=== PATIENT | female | born 1950 | race Caucasian/White ===

== ENCOUNTER 2018-05-20 08:12 | Inpatient (IN) ==
[2018-05-20 09:29] LABS: Apearance,Urine CLEAR (Clear); Bacteria,Urine Occasional /HPF (Few); Bilirubin,Urine Negative (Negative); Blood, Urine Negative (Negative); Glucose,Urine (UA) Negative (Negative); Hyaline Casts,Urine 9 /LPF (0-3); Ketones,Urine Negative (Negative); Nitrite,Urine Negative (Negative); Protein,Urine Negative; RBC,Urine 3 /HPF (0-4); Urine Color Straw (Yellow); Urine Urobilinogen < 2.0 EU/DL (0.2-1.0); WBC,Urine <1 /HPF (0-6)
[2018-05-20] MEDS ORDERED: methylPREDNISolone SOD SUC 125 MG/2 ML VIAL IV STA (09:33)
[2018-05-20] MEDS ORDERED: ONDANSETRON 4 MG/2 ML VIAL IV STA (09:33)
[2018-05-20] MEDS ORDERED: FUROSEMIDE 100 MG/10 ML VIAL IV STA (09:33)
[2018-05-20 09:40] LABS: Basophils # 0.1 10*3/uL (0.0-0.2); Basophils % 0.8 % (0.0-0.8); Eosinophils # 0.4 10*3/uL (0.0-0.87); Eosinophils % 5.3 % (0.00-10.9); Hematocrit 26.9 VOL% (35.7-47.0); Immature Granulocytes % 0.4 %; Immature Granulocytes Absolute 0.03 #; Lymphocytes # 1.2 10*3/uL (1.4-4.0); Mean Corpuscular Hemoglobin 19 PG (27-34); Mean Corpuscular Volume 74.1 FL (87-102); Mean Platelet Volume 9.8 FL (9.6-12.0); Monocytes % 13.2 % (1.7-12.7); Neutrophils # 4.7 10*3/uL (1.4-7.4); Neutrophils % 64.3 % (38.7-73.9); Platelet Count 325 T/CUMM (130-400); Red Blood Count 3.63 MC/CUMM (3.8-5.5); Red Cell Distribution Width 20.6 % (9.3-17.3); White Blood Count 7.4 T/CUMM (4-12)
[2018-05-20 09:45] LABS: Barbiturates Screen,Urine Negative (Negative); Benzodiazepines Screen,Urine Positive (Negative); Cannabinoid Screen,Urine Negative (Negative); INR 0.9; Opiate Screen,Urine Positive (Negative); PT Patient Result 9.4 SECS; Phencyclidine Screen,Urine Negative (Negative)
[2018-05-20 09:48] LABS: Albumin 3.7 G/DL (3.4-5.0); Bilirubin,Total 0.5 MG/DL (0.2-1.0); Calcium 8.2 MG/DL (8.5-10.1); Osmolality,Calculated 274.8 MOS/KG (273-304); Potassium 3.9 MMOL/L (3.5-5.1); Total Protein 6.8 G/DL (6.4-8.3)
[2018-05-20] MEDS ORDERED: ALBUTEROL 2.5 MG/3 ML NEB RESP TX SCH (10:00)
[2018-05-20 10:02] LABS: ABG Base Excess 4.3 MMOL/L (-2.5-2.5); ABG HCO3 28.2 MMOL/L (20-26); ABG Oxygen Saturation 93.2 % (95-100); ABG PH 7.255 (7.35-7.45); ABG PO2 77.8 MM HG (80-95); ABG TCO2 31.4 MMOL/L (23-27)
[2018-05-20 10:04] LABS: ABG PCO2 73.8 MM HG (35-48)
[2018-05-20] MEDS ORDERED: NALOXONE 0.4 MG/ML VIAL ONE (11:47)
[2018-05-20] MEDS ORDERED: NALOXONE 0.4 MG/ML VIAL IV ONE (11:50)
[2018-05-20] MEDS ORDERED: ONDANSETRON 4 MG/2 ML VIAL IV PRN (12:10)
[2018-05-20] MEDS ORDERED: ALBUTEROL 2.5 MG/3 ML NEB RESP TX PRN (12:10)
[2018-05-20] MEDS ORDERED: NALOXONE 0.4 MG/ML VIAL IV PRN (12:18)
[2018-05-20] MEDS: ALBUTEROL/IPRATROPIUM 3 ML NEB RESP TX SCH ×2 (12:20→19:08)
[2018-05-20] MEDS ORDERED: PANTOPRAZOLE 40 MG VIAL IV SCH (12:30)
[2018-05-20] MEDS: ENOXAPARIN 40 MG/0.4 ML SYRINGE SUBCUT SCH (14:30)
[2018-05-20] MEDS: SODIUM CHLORIDE 0.9% 1,000 ML IV SCH (14:30)
[2018-05-20] MEDS: BUDESONIDE 0.5 MG/2 ML NEB RESP TX SCH (19:08)
[2018-05-21] MEDS: ALBUTEROL/IPRATROPIUM 3 ML NEB RESP TX SCH ×4 (00:18→19:56)
[2018-05-21] MEDS: SODIUM CHLORIDE 0.9% 1,000 ML IV SCH (00:35)
[2018-05-21] MEDS: ACETAMINOPHEN 325 MG TABLET PO PRN ×2 (04:54→21:20)
[2018-05-21] MEDS: LEVOTHYROXINE 50 MCG TABLET PO SCH (06:18)
[2018-05-21] MEDS: BUDESONIDE 0.5 MG/2 ML NEB RESP TX SCH ×2 (07:22→19:57)
[2018-05-21 07:25] LABS: Basophils % 0.1 % (0.0-0.8); Immature Granulocytes % 0.7 %; Immature Granulocytes Absolute 0.06 #; Lymphocytes # 0.7 10*3/uL (1.4-4.0); Lymphocytes % 7.5 % (21.3-54.2); Mean Corpuscular HGB Conc 26.9 GM/DL (32-36); Mean Corpuscular Hemoglobin 20 PG (27-34); Mean Corpuscular Volume 73.6 FL (87-102); Monocytes # 1.1 10*3/uL (0.11-0.8); Monocytes % 11.9 % (1.7-12.7); Neutrophils # 7.2 10*3/uL (1.4-7.4); Neutrophils % 79.8 % (38.7-73.9); Platelet Count 312 T/CUMM (130-400); Red Blood Count 3.18 MC/CUMM (3.8-5.5); Red Cell Distribution Width 20.1 % (9.3-17.3); White Blood Count 9.1 T/CUMM (4-12)
[2018-05-21 07:29] LABS: Hematocrit 23.4 VOL% (35.7-47.0); Hemoglobin 6.3 GM/DL (12.0-16.0)
[2018-05-21 07:31] LABS: Bilirubin,Total 0.4 MG/DL (0.2-1.0); Calcium 8.1 MG/DL (8.5-10.1); Osmolality,Calculated 283.1 MOS/KG (273-304); Thyroid Stimulating Hormone 0.62 uIU/ml (0.358-3.74); Total Protein 6.5 G/DL (6.4-8.3)
[2018-05-21 07:37] LABS: Hypochromasia 2+; Ovalocytes Slight; Platelet Estimate Adequate
[2018-05-21] MEDS: LOSARTAN/HCTZ 50-12.5 MG TABLET PO SCH (08:29)
[2018-05-21] MEDS: PARoxetine 20 MG TABLET PO SCH (08:30)
[2018-05-21 09:51] LABS: ABG Base Excess 9.2 MMOL/L (-2.5-2.5); ABG HCO3 32.9 MMOL/L (20-26); ABG Oxygen Saturation 91.7 % (95-100); ABG PCO2 60.2 MM HG (35-48); ABG PO2 63.7 MM HG (80-95)
[2018-05-21] MEDS: ENOXAPARIN 40 MG/0.4 ML SYRINGE SUBCUT SCH (12:05)
[2018-05-21] MEDS: PRAMIPEXOLE 0.25 MG TABLET PO SCH (21:20)
[2018-05-21] MEDS: chlordiazePOXIDE 10 MG CAPSULE PO SCH (21:21)
[2018-05-21] MEDS: PRAVASTATIN 40 MG TABLET PO SCH (21:22)
[2018-05-22] MEDS: ALBUTEROL/IPRATROPIUM 3 ML NEB RESP TX SCH ×4 (00:52→19:00)
[2018-05-22] MEDS: ACETAMINOPHEN 325 MG TABLET PO PRN ×2 (02:15→18:08)
[2018-05-22 05:09] LABS: Calcium 8.5 MG/DL (8.5-10.1); Osmolality,Calculated 288.8 MOS/KG (273-304); Potassium 3.5 MMOL/L (3.5-5.1)
[2018-05-22 05:35] LABS: Basophils # 0.1 10*3/uL (0.0-0.2); Basophils % 0.5 % (0.0-0.8); Eosinophils # 0.1 10*3/uL (0.0-0.87); Eosinophils % 0.8 % (0.00-10.9); Hematocrit 24.5 VOL% (35.7-47.0); Hemoglobin 6.5 GM/DL (12.0-16.0); Immature Granulocytes % 0.5 %; Immature Granulocytes Absolute 0.05 #; Lymphocytes # 1.1 10*3/uL (1.4-4.0); Lymphocytes % 11.8 % (21.3-54.2); Mean Corpuscular HGB Conc 26.5 GM/DL (32-36); Mean Corpuscular Hemoglobin 19 PG (27-34); Mean Corpuscular Volume 73.1 FL (87-102); Mean Platelet Volume 9.8 FL (9.6-12.0); Monocytes % 10.5 % (1.7-12.7); Neutrophils # 7.1 10*3/uL (1.4-7.4); Neutrophils % 75.9 % (38.7-73.9); Platelet Count 304 T/CUMM (130-400); Red Blood Count 3.35 MC/CUMM (3.8-5.5); Red Cell Distribution Width 20.6 % (9.3-17.3); White Blood Count 9.4 T/CUMM (4-12)
[2018-05-22] MEDS: BUDESONIDE 0.5 MG/2 ML NEB RESP TX SCH ×2 (06:59→19:04)
[2018-05-22] MEDS: LEVOTHYROXINE 50 MCG TABLET PO SCH (07:18)
[2018-05-22] MEDS: ENOXAPARIN 40 MG/0.4 ML SYRINGE SUBCUT SCH (08:26)
[2018-05-22] MEDS: chlordiazePOXIDE 10 MG CAPSULE PO SCH (08:26)
[2018-05-22] MEDS: LOSARTAN/HCTZ 50-12.5 MG TABLET PO SCH (08:26)
[2018-05-22] MEDS: PARoxetine 20 MG TABLET PO SCH (08:26)
[2018-05-22] MEDS ORDERED: SODIUM CHLORIDE 0.9% 1,000 ML IV PRN (11:41)
[2018-05-22] MEDS: PANTOPRAZOLE 40 MG TABLET PO SCH ×2 (13:15→20:19)
[2018-05-22] MEDS: DICLOFENAC 1% GEL 100 GM TUBE TOP SCH ×3 (13:15→20:20)
[2018-05-22 20:11] LABS: Hematocrit 31.9 VOL% (35.7-47.0); Hemoglobin 9.1 GM/DL (12.0-16.0)
[2018-05-22] MEDS: PRAVASTATIN 40 MG TABLET PO SCH (20:19)
[2018-05-22] MEDS: GABAPENTIN 300 MG CAPSULE PO SCH (20:19)
[2018-05-22] MEDS: PRAMIPEXOLE 0.25 MG TABLET PO SCH (20:19)
[2018-05-22] MEDS ORDERED: MIRTAZAPINE 15 MG TABLET PO SCH (21:00)
[2018-05-23] MEDS: ALBUTEROL/IPRATROPIUM 3 ML NEB RESP TX SCH ×4 (00:38→19:24)
[2018-05-23] MEDS ORDERED: NALOXONE 0.4 MG/ML VIAL ONE ×2 (00:55→01:00)
[2018-05-23] MEDS: NALOXONE 0.4 MG/ML VIAL IV PRN ×2 (00:56→01:02)
[2018-05-23 01:14] LABS: ABG Base Excess 6.5 MMOL/L (-2.5-2.5); ABG HCO3 30.3 MMOL/L (20-26); ABG Oxygen Saturation 95.2 % (95-100); ABG PH 7.306 (7.35-7.45); ABG PO2 84.4 MM HG (80-95); ABG TCO2 32.3 MMOL/L (23-27); Allen Test Positive
[2018-05-23 01:17] LABS: ABG PCO2 69.5 MM HG (35-48)
[2018-05-23 01:51] LABS: Calcium 8.6 MG/DL (8.5-10.1); Osmolality,Calculated 284.1 MOS/KG (273-304); Potassium 2.8 MMOL/L (3.5-5.1)
[2018-05-23 02:27] LABS: Basophils # 0.1 10*3/uL (0.0-0.2); Basophils % 0.2 % (0.0-0.8); Immature Granulocytes % 1.9 %; Immature Granulocytes Absolute 0.45 #; Lymphocytes # 0.4 10*3/uL (1.4-4.0); Lymphocytes % 1.6 % (21.3-54.2); Mean Corpuscular HGB Conc 28.4 GM/DL (32-36); Mean Corpuscular Hemoglobin 22 PG (27-34); Mean Corpuscular Volume 76.4 FL (87-102); Monocytes # 1.8 10*3/uL (0.11-0.8); Monocytes % 7.3 % (1.7-12.7); NRBC # 0.03 10*3/uL; Neutrophils # 21.6 10*3/uL (1.4-7.4); Platelet Count 276 T/CUMM (130-400); Red Blood Count 4.06 MC/CUMM (3.8-5.5); Red Cell Distribution Width 20.4 % (9.3-17.3); White Blood Count 24.3 T/CUMM (4-12)
[2018-05-23 02:28] LABS: Hematocrit 30.6 VOL% (35.7-47.0); Hemoglobin 8.8 GM/DL (12.0-16.0)
[2018-05-23 02:37] LABS: Band Neutrophils 5 % (0-10); Lymphocytes 2 % (20-55); Segmented Neutrophils 87 % (50-85); Total Cells Counted 100
[2018-05-23 02:38] LABS: Anisocytosis 1+; Hypochromasia 1+
[2018-05-23 02:39] LABS: Ovalocytes Few; Platelet Estimate Adequate
[2018-05-23 02:46] LABS: ABG Base Excess 7.6 MMOL/L (-2.5-2.5); ABG HCO3 31.2 MMOL/L (20-26); ABG Oxygen Saturation 85.6 % (95-100); ABG PCO2 57.3 MM HG (35-48); ABG PH 7.383 (7.35-7.45); ABG TCO2 31.6 MMOL/L (23-27)
[2018-05-23] MEDS: POTASSIUM CHLORIDE RIDER 10 MEQ in PREMIX 1 EACH IV PRN ×5 (03:20→07:34)
[2018-05-23 04:06] LABS: Apearance,Urine CLEAR (Clear); Bilirubin,Urine Negative (Negative); Blood, Urine Negative (Negative); Glucose,Urine (UA) Negative (Negative); Ketones,Urine 5 mg/dL (Negative); Mucus,Urine Occasional /LPF (Occasional); Nitrite,Urine Negative (Negative); Protein,Urine Negative; RBC,Urine 1 /HPF (0-4); Squamous Epithelial Cell,Urine Occasional /HPF (0-10); Urine Color Yellow (Yellow); Urine Specific Gravity 1.017 (1.001-1.035); Urine Urobilinogen < 2.0 EU/DL (0.2-1.0); WBC,Urine 1 /HPF (0-6)
[2018-05-23] MEDS ORDERED: AZTREONAM 2,000 MG in SODIUM CHLORIDE 0.9% 100 ML IV SCH (06:00)
[2018-05-23] MEDS: LEVOTHYROXINE 50 MCG TABLET PO SCH (06:34)
[2018-05-23] MEDS: BUDESONIDE 0.5 MG/2 ML NEB RESP TX SCH ×2 (07:33→19:25)
[2018-05-23] MEDS: VANCOMYCIN INJ 1,250 MG in SODIUM CHLORIDE 0.9% 250 ML IV SCH ×2 (07:37→21:23)
[2018-05-23] MEDS: POTASSIUM CHLORIDE 20 MEQ TABLET PO PRN ×2 (07:43→11:02)
[2018-05-23] MEDS: PARoxetine 20 MG TABLET PO SCH (08:47)
[2018-05-23] MEDS: LOSARTAN/HCTZ 50-12.5 MG TABLET PO SCH (08:47)
[2018-05-23] MEDS: GABAPENTIN 300 MG CAPSULE PO SCH (08:47)
[2018-05-23] MEDS: PANTOPRAZOLE 40 MG TABLET PO SCH ×2 (08:48→21:23)
[2018-05-23] MEDS: DICLOFENAC 1% GEL 100 GM TUBE TOP SCH ×4 (09:53→21:23)
[2018-05-23] MEDS: ACETAMINOPHEN 325 MG TABLET PO PRN ×2 (11:54→18:30)
[2018-05-23] MEDS: AZTREONAM 2,000 MG in SYRINGE 1 EACH IV SCH ×2 (18:30→23:18)
[2018-05-23] MEDS: PRAVASTATIN 40 MG TABLET PO SCH (21:22)
[2018-05-24] MEDS: ALBUTEROL/IPRATROPIUM 3 ML NEB RESP TX SCH ×4 (00:50→20:01)
[2018-05-24 05:26] LABS: Calcium 8.5 MG/DL (8.5-10.1); Osmolality,Calculated 280.3 MOS/KG (273-304); Potassium 3.6 MMOL/L (3.5-5.1)
[2018-05-24 05:36] LABS: Basophils % 0.3 % (0.0-0.8); Eosinophils # 0.1 10*3/uL (0.0-0.87); Eosinophils % 0.5 % (0.00-10.9); Hematocrit 31.3 VOL% (35.7-47.0); Hemoglobin 8.9 GM/DL (12.0-16.0); Immature Granulocytes % 0.7 %; Immature Granulocytes Absolute 0.07 #; Lymphocytes # 0.3 10*3/uL (1.4-4.0); Lymphocytes % 3.5 % (21.3-54.2); Mean Corpuscular HGB Conc 28.4 GM/DL (32-36); Mean Corpuscular Hemoglobin 22 PG (27-34); Mean Corpuscular Volume 76.3 FL (87-102); Monocytes # 0.6 10*3/uL (0.11-0.8); Monocytes % 6.6 % (1.7-12.7); NRBC # 0.02 10*3/uL; Neutrophils # 8.4 10*3/uL (1.4-7.4); Neutrophils % 88.4 % (38.7-73.9); Platelet Count 200 T/CUMM (130-400); Red Cell Distribution Width 21.9 % (9.3-17.3); White Blood Count 9.6 T/CUMM (4-12)
[2018-05-24] MEDS: AZTREONAM 2,000 MG in SYRINGE 1 EACH IV SCH ×3 (06:00→17:33)
[2018-05-24 06:20] LABS: Band Neutrophils 3 % (0-10); Eosinophils 1 % (0-10); Lymphocytes 7 % (20-55); Segmented Neutrophils 81 % (50-85); Total Cells Counted 100
[2018-05-24 06:21] LABS: Hypochromasia 1+; Microcytosis 1+; Platelet Estimate Normal; Reactive Lymphocytes Few
[2018-05-24 06:22] LABS: Elliptocytes Few
[2018-05-24] MEDS: LEVOTHYROXINE 50 MCG TABLET PO SCH (06:30)
[2018-05-24] MEDS: ACETAMINOPHEN 325 MG TABLET PO PRN (06:37)
[2018-05-24] MEDS: BUDESONIDE 0.5 MG/2 ML NEB RESP TX SCH ×2 (07:50→20:01)
[2018-05-24] MEDS: POTASSIUM CHLORIDE 20 MEQ TABLET PO PRN ×2 (08:42→11:19)
[2018-05-24] MEDS: LOSARTAN/HCTZ 50-12.5 MG TABLET PO SCH (08:42)
[2018-05-24] MEDS: PARoxetine 20 MG TABLET PO SCH (08:42)
[2018-05-24] MEDS: DICLOFENAC 1% GEL 100 GM TUBE TOP SCH ×4 (08:43→21:06)
[2018-05-24] MEDS: PANTOPRAZOLE 40 MG TABLET PO SCH ×2 (08:43→21:01)
[2018-05-24] MEDS: VANCOMYCIN INJ 1,250 MG in SODIUM CHLORIDE 0.9% 250 ML IV SCH ×2 (08:43→21:06)
[2018-05-24] MEDS: PRAVASTATIN 40 MG TABLET PO SCH (21:36)
[2018-05-25] MEDS: AZTREONAM 2,000 MG in SYRINGE 1 EACH IV SCH ×2 (00:13→05:26)
[2018-05-25] MEDS: ALBUTEROL/IPRATROPIUM 3 ML NEB RESP TX SCH ×4 (00:48→19:24)
[2018-05-25] MEDS: ACETAMINOPHEN 325 MG TABLET PO PRN ×2 (01:56→23:45)
[2018-05-25] MEDS: LEVOTHYROXINE 50 MCG TABLET PO SCH (05:59)
[2018-05-25 06:39] LABS: Basophils # 0.1 10*3/uL (0.0-0.2); Basophils % 0.7 % (0.0-0.8); Eosinophils # 0.2 10*3/uL (0.0-0.87); Eosinophils % 2.6 % (0.00-10.9); Hematocrit 33.3 VOL% (35.7-47.0); Immature Granulocytes % 1.1 %; Immature Granulocytes Absolute 0.08 #; Lymphocytes # 0.6 10*3/uL (1.4-4.0); Lymphocytes % 8.5 % (21.3-54.2); Mean Corpuscular HGB Conc 28.5 GM/DL (32-36); Mean Corpuscular Hemoglobin 22 PG (27-34); Mean Corpuscular Volume 76.2 FL (87-102); Mean Platelet Volume 10.1 FL (9.6-12.0); Monocytes # 1.2 10*3/uL (0.11-0.8); Monocytes % 15.8 % (1.7-12.7); Neutrophils # 5.3 10*3/uL (1.4-7.4); Neutrophils % 71.3 % (38.7-73.9); Platelet Count 180 T/CUMM (130-400); Red Blood Count 4.37 MC/CUMM (3.8-5.5); Red Cell Distribution Width 22.8 % (9.3-17.3); White Blood Count 7.4 T/CUMM (4-12)
[2018-05-25 06:40] LABS: Calcium 8.8 MG/DL (8.5-10.1); Hemoglobin 9.5 GM/DL (12.0-16.0); Osmolality,Calculated 277.4 MOS/KG (273-304); Potassium 3.5 MMOL/L (3.5-5.1)
[2018-05-25 06:57] LABS: Band Neutrophils 2 % (0-10); Eosinophils 4 % (0-10); Hypochromasia 2+; Lymphocytes 13 % (20-55); Platelet Estimate Adequate; Segmented Neutrophils 70 % (50-85); Total Cells Counted 100
[2018-05-25 06:58] LABS: Microcytosis 1+
[2018-05-25] MEDS: BUDESONIDE 0.5 MG/2 ML NEB RESP TX SCH ×2 (07:08→19:24)
[2018-05-25] MEDS ORDERED: LIDOCAINE 100 MG/5 ML SYRINGE ONE (10:00)
[2018-05-25] MEDS ORDERED: PROPOFOL 200 MG/20 ML VIAL IV ONE (10:00)
[2018-05-25] MEDS: LOSARTAN/HCTZ 50-12.5 MG TABLET PO SCH (10:49)
[2018-05-25] MEDS: PARoxetine 20 MG TABLET PO SCH (10:50)
[2018-05-25] MEDS: PANTOPRAZOLE 40 MG TABLET PO SCH ×2 (10:50→22:22)
[2018-05-25] MEDS: DICLOFENAC 1% GEL 100 GM TUBE TOP SCH ×4 (11:01→22:22)
[2018-05-25] MEDS: VANCOMYCIN INJ 1,250 MG in SODIUM CHLORIDE 0.9% 250 ML IV SCH (11:12)
[2018-05-25] MEDS: PRAVASTATIN 40 MG TABLET PO SCH (22:22)
[2018-05-26] MEDS: ALBUTEROL/IPRATROPIUM 3 ML NEB RESP TX SCH ×4 (00:16→20:01)
[2018-05-26] MEDS: LEVOTHYROXINE 50 MCG TABLET PO SCH (06:46)
[2018-05-26] MEDS: BUDESONIDE 0.5 MG/2 ML NEB RESP TX SCH ×2 (07:35→20:01)
[2018-05-26] MEDS: LOSARTAN/HCTZ 50-12.5 MG TABLET PO SCH (09:34)
[2018-05-26] MEDS: PARoxetine 20 MG TABLET PO SCH (09:34)
[2018-05-26] MEDS: PANTOPRAZOLE 40 MG TABLET PO SCH ×2 (09:34→21:46)
[2018-05-26] MEDS: DICLOFENAC 1% GEL 100 GM TUBE TOP SCH ×4 (09:35→21:46)
[2018-05-26] MEDS ORDERED: hydroCHLOROthiazide 12.5 MG CAPSULE PO ONE (15:29)
[2018-05-26] MEDS ORDERED: SIMVASTATIN 20 MG TABLET PO SCH (21:00)
[2018-05-27] MEDS: ALBUTEROL/IPRATROPIUM 3 ML NEB RESP TX SCH ×3 (00:25→12:58)
[2018-05-27] MEDS: ACETAMINOPHEN 325 MG TABLET PO PRN (01:51)
[2018-05-27] MEDS ORDERED: BUDESONIDE 0.5 MG/2 ML NEB RESP TX SCH (08:00)
[2018-05-27] MEDS: LEVOTHYROXINE 50 MCG TABLET PO SCH (08:07)
[2018-05-27] MEDS ORDERED: LOSARTAN 50 MG TABLET PO SCH (09:00)
[2018-05-27] MEDS ORDERED: hydroCHLOROthiazide 25 MG TABLET PO SCH (09:00)
[2018-05-27] MEDS: PARoxetine 20 MG TABLET PO SCH (11:16)
[2018-05-27] MEDS: PANTOPRAZOLE 40 MG TABLET PO SCH (11:17)
[2018-05-27] MEDS: DICLOFENAC 1% GEL 100 GM TUBE TOP SCH ×2 (11:17→13:14)
[2018-05-27 11:58] VITALS: BP 149/91
== END 2018-05-27 14:45 | disposition home or self-care (01) | DRG 917 ==
LOC: EDUNIT# → EDBD → N.EDINP 08:12 → N.ED 08:12 → N.2W 11:45 → SUATTDRO 11:48 → N.CC 11:53 → N.2E 05-21 13:11 → N.CC 05-23 02:04 → N.2E 05-24 11:39
PROVIDERS: ADMIT Internal Medicine; ATTEND Internal Medicine

== ENCOUNTER 2020-08-28 00:33 | Inpatient (IN) ==
[2020-08-28 02:49] LABS: ABG Base Excess 7.9 MMOL/L (-2.5-2.5); ABG HCO3 31.7 MMOL/L (20-26); ABG Oxygen Saturation 97.9 % (95-100); ABG TCO2 39.9 MMOL/L (23-27); Allen Test Positive; Pt O2 Delivery Device Other
[2020-08-28 02:54] LABS: ABG PH 7.139 (7.35-7.45)
[2020-08-28] MEDS ORDERED: DOCUSATE SODIUM 100 MG CAPSULE PO PRN (03:15)
[2020-08-28] MEDS ORDERED: ACETAMINOPHEN 325 MG TABLET PO PRN (03:15)
[2020-08-28] MEDS ORDERED: ONDANSETRON 4 MG/2 ML VIAL IV PRN (03:15)
[2020-08-28] MEDS ORDERED: ALBUTEROL 2.5 MG/3 ML NEB RESP TX PRN (03:15)
[2020-08-28 04:11] LABS: ABG Base Excess 9.3 MMOL/L (-2.5-2.5); ABG Oxygen Saturation 94.9 % (95-100); ABG TCO2 45.7 MMOL/L (23-27)
[2020-08-28 04:12] LABS: Allen Test Positive; Pt O2 Delivery Device BIPAP
[2020-08-28 04:16] LABS: ABG PCO2 120.4 MM HG (35-48)
[2020-08-28 04:17] LABS: ABG PH 7.161 (7.35-7.45)
[2020-08-28] MEDS: LEVOFLOXACIN INJ 750 MG in PREMIX 1 EACH IV SCH (06:00)
[2020-08-28] MEDS: ENOXAPARIN 40 MG/0.4 ML SYRINGE SUBCUT SCH (06:00)
[2020-08-28] MEDS: PANTOPRAZOLE 40 MG VIAL IV SCH (06:00)
[2020-08-28] MEDS: methylPREDNISolone SOD SUC 40 MG/1 ML VIAL IV SCH ×3 (06:01→21:15)
[2020-08-28] MEDS: LEVOTHYROXINE 50 MCG TABLET PO SCH (06:01)
[2020-08-28 06:20] LABS: ABG Base Excess 8.5 MMOL/L (-2.5-2.5); ABG HCO3 32.2 MMOL/L (20-26); ABG PO2 79.9 MM HG (80-95); ABG TCO2 40.5 MMOL/L (23-27); Allen Test Positive; Pt O2 Delivery Device BIPAP
[2020-08-28 06:26] LABS: ABG PH 7.143 (7.35-7.45)
[2020-08-28] MEDS: ALBUTEROL/IPRATROPIUM 3 ML NEB RESP TX SCH ×3 (06:49→19:53)
[2020-08-28] MEDS: ARFORMOTEROL 15 MCG/2 ML NEB RESP TX SCH ×2 (06:49→19:53)
[2020-08-28 06:54] LABS: Basophils % 0.2 % (0.0-0.8); Eosinophils % 0.1 % (0.00-10.9); Hematocrit 39.8 VOL% (35.7-47.0); Hemoglobin 11.9 GM/DL (12.0-16.0); Immature Granulocytes % 1.2 %; Immature Granulocytes Absolute 0.13 #; Lymphocytes # 0.2 10*3/uL (1.4-4.0); Lymphocytes % 2.3 % (21.3-54.2); Mean Corpuscular HGB Conc 29.9 GM/DL (32-36); Mean Corpuscular Volume 97.5 FL (87-102); Mean Platelet Volume 10.3 FL (9.6-12.0); Neutrophils % 95.2 % (38.7-73.9); Platelet Count 267 T/CUMM (130-400); Red Blood Count 4.08 MC/CUMM (3.8-5.5); Red Cell Distribution Width 14.3 % (9.3-17.3); White Blood Count 10.5 T/CUMM (4-12)
[2020-08-28 07:00] LABS: Lymphocytes 2 % (20-55); Platelet Estimate Adequate; Segmented Neutrophils 98 % (50-85); Total Cells Counted 100
[2020-08-28 07:01] LABS: Hypochromasia 1+; Microcytosis 1+
[2020-08-28 07:09] LABS: Alanine Aminotransferase 25 U/L (13-56); Albumin 3.3 G/DL (3.4-5.0); Alkaline Phosphatase 88 U/L (45-117); Aspartate Amino Transferase 21 U/L (0-37); Bilirubin,Total < 0.39 MG/DL (0.2-1.0); Blood Urea Nitrogen 19 MG/DL (7-18); Calcium 8.8 MG/DL (8.5-10.1); Carbon Dioxide 39 MMOL/L (21-32); Estimated Glom Filtration Rate 59 ML/MIN; Glucose 144 MG/DL (74-106); Osmolality,Calculated 277.8 MOS/KG (273-304); Potassium 4.1 MMOL/L (3.5-5.1); Sodium 137 MMOL/L (136-145); Thyroid Stimulating Hormone 0.732 uIU/ml (0.358-3.74); Total Protein 7.6 G/DL (6.4-8.3)
[2020-08-28 08:06] LABS: Pt O2 Delivery Device BIPAP
[2020-08-28 08:07] LABS: ABG Base Excess 8.7 MMOL/L (-2.5-2.5); ABG HCO3 32.4 MMOL/L (20-26); ABG Oxygen Saturation 97.3 % (95-100)
[2020-08-28 08:09] LABS: ABG PH 7.205 (7.35-7.45)
[2020-08-28] MEDS: ASCORBIC ACID 500 MG TABLET PO SCH (10:03)
[2020-08-28] MEDS: FERROUS SULFATE 325 MG TABLET PO SCH (10:03)
[2020-08-28] MEDS ORDERED: PRAMIPEXOLE 0.25 MG TABLET PO SCH ×2 (11:11→21:00)
[2020-08-28] MEDS ORDERED: PRAMIPEXOLE 0.25 MG TABLET PO ONE (11:23)
[2020-08-28] MEDS: Umeclidinium [Incruse Ellipta] 62.5 mcg/actuation INH SCH (18:11)
[2020-08-29] MEDS: ALBUTEROL/IPRATROPIUM 3 ML NEB RESP TX SCH ×4 (01:55→19:49)
[2020-08-29] MEDS: LEVOFLOXACIN INJ 750 MG in PREMIX 1 EACH IV SCH (03:35)
[2020-08-29] MEDS: PANTOPRAZOLE 40 MG VIAL IV SCH (03:36)
[2020-08-29 05:03] LABS: Hematocrit 35.6 VOL% (35.7-47.0); Hemoglobin 10.6 GM/DL (12.0-16.0); Immature Granulocytes % 0.7 %; Immature Granulocytes Absolute 0.05 #; Lymphocytes # 0.3 10*3/uL (1.4-4.0); Lymphocytes % 4.3 % (21.3-54.2); Mean Corpuscular HGB Conc 29.8 GM/DL (32-36); Mean Corpuscular Volume 95.7 FL (87-102); Mean Platelet Volume 10.5 FL (9.6-12.0); Monocytes % 5.4 % (1.7-12.7); Neutrophils % 89.6 % (38.7-73.9); Platelet Count 259 T/CUMM (130-400); Red Blood Count 3.72 MC/CUMM (3.8-5.5); Red Cell Distribution Width 13.7 % (9.3-17.3)
[2020-08-29 05:30] LABS: Hypochromasia 1+; Lymphocytes 3 % (20-55); Microcytosis 1+; Nucleated Red Blood Cells 1 (0-5); Platelet Estimate Normal; Polychromasia Slight; Segmented Neutrophils 91 % (50-85); Total Cells Counted 100
[2020-08-29] MEDS: ENOXAPARIN 40 MG/0.4 ML SYRINGE SUBCUT SCH (05:46)
[2020-08-29] MEDS: methylPREDNISolone SOD SUC 40 MG/1 ML VIAL IV SCH ×3 (05:46→20:56)
[2020-08-29] MEDS: LEVOTHYROXINE 50 MCG TABLET PO SCH (05:47)
[2020-08-29 06:01] LABS: ABG Base Excess 11.2 MMOL/L (-2.5-2.5); ABG HCO3 34.9 MMOL/L (20-26); ABG Oxygen Saturation 96.6 % (95-100); ABG PCO2 59.6 MM HG (35-48); ABG PH 7.414 (7.35-7.45); ABG PO2 86.4 MM HG (80-95); ABG TCO2 34.3 MMOL/L (23-27)
[2020-08-29 06:02] LABS: Allen Test Positive; Pt O2 Delivery Device BIPAP
[2020-08-29 06:34] LABS: Albumin 3.1 G/DL (3.4-5.0); Bilirubin,Total 0.7 MG/DL (0.2-1.0); Calcium 8.7 MG/DL (8.5-10.1); Osmolality,Calculated 279.8 MOS/KG (273-304); Potassium 3.8 MMOL/L (3.5-5.1); Total Protein 7.1 G/DL (6.4-8.3)
[2020-08-29] MEDS: ARFORMOTEROL 15 MCG/2 ML NEB RESP TX SCH ×2 (07:01→19:49)
[2020-08-29] MEDS: FERROUS SULFATE 325 MG TABLET PO SCH (08:24)
[2020-08-29] MEDS: ASCORBIC ACID 500 MG TABLET PO SCH (08:24)
[2020-08-29] MEDS: Umeclidinium [Incruse Ellipta] 62.5 mcg/actuation INH SCH (08:29)
[2020-08-29] MEDS ORDERED: ONDANSETRON ODT 4 MG TABLET PO PRN (12:07)
[2020-08-29] MEDS ORDERED: BUDESONIDE 0.5 MG/2 ML NEB RESP TX SCH (12:07)
[2020-08-29] MEDS ORDERED: ALBUTEROL 2.5 MG/3 ML NEB RESP TX PRN (12:07)
[2020-08-29] MEDS: PARoxetine 20 MG TABLET PO SCH (13:24)
[2020-08-29] MEDS ORDERED: ALPRAZolam 0.25 MG TABLET PO PRN (18:23)
[2020-08-29] MEDS: BUDESONIDE 0.5 MG/2 ML NEB RESP TX SCH (19:49)
[2020-08-29] MEDS: SIMVASTATIN 20 MG TABLET PO SCH (20:56)
[2020-08-29] MEDS: PRAMIPEXOLE 0.25 MG TABLET PO SCH (20:56)
[2020-08-30] MEDS: ALBUTEROL/IPRATROPIUM 3 ML NEB RESP TX SCH ×4 (00:50→19:06)
[2020-08-30] MEDS: LEVOFLOXACIN INJ 750 MG in PREMIX 1 EACH IV SCH (04:05)
[2020-08-30] MEDS: methylPREDNISolone SOD SUC 40 MG/1 ML VIAL IV SCH ×3 (04:05→20:43)
[2020-08-30 04:36] LABS: ABG Base Excess 13.5 MMOL/L (-2.5-2.5); ABG HCO3 40.5 MMOL/L (20-26); ABG Oxygen Saturation 93.1 % (95-100); ABG PH 7.412 (7.35-7.45); ABG PO2 70.8 MM HG (80-95); ABG TCO2 42.5 MMOL/L (23-27); Allen Test Positive; Pt O2 Delivery Device BIPAP
[2020-08-30 05:37] LABS: Hematocrit 32.6 VOL% (35.7-47.0); Hemoglobin 10.2 GM/DL (12.0-16.0); Immature Granulocytes % 0.6 %; Immature Granulocytes Absolute 0.04 #; Lymphocytes # 0.3 10*3/uL (1.4-4.0); Lymphocytes % 4.7 % (21.3-54.2); Mean Corpuscular HGB Conc 31.3 GM/DL (32-36); Mean Corpuscular Volume 93.4 FL (87-102); Mean Platelet Volume 10.6 FL (9.6-12.0); Monocytes % 4.5 % (1.7-12.7); Neutrophils % 90.2 % (38.7-73.9); Platelet Count 203 T/CUMM (130-400); Red Blood Count 3.49 MC/CUMM (3.8-5.5); Red Cell Distribution Width 14.2 % (9.3-17.3); White Blood Count 6.8 T/CUMM (4-12)
[2020-08-30 06:06] LABS: Band Neutrophils 1 % (0-10); Hypochromasia 1+; Lymphocytes 3 % (20-55); Microcytosis 1+; Platelet Estimate Adequate; Segmented Neutrophils 92 % (50-85); Total Cells Counted 100
[2020-08-30 06:13] LABS: Albumin 2.8 G/DL (3.4-5.0); Bilirubin,Total 0.5 MG/DL (0.2-1.0); Calcium 8.4 MG/DL (8.5-10.1); Osmolality,Calculated 284.5 MOS/KG (273-304); Total Protein 5.7 G/DL (6.4-8.3)
[2020-08-30] MEDS: LEVOTHYROXINE 50 MCG TABLET PO SCH (06:32)
[2020-08-30] MEDS: ENOXAPARIN 40 MG/0.4 ML SYRINGE SUBCUT SCH (06:32)
[2020-08-30] MEDS: BUDESONIDE 0.5 MG/2 ML NEB RESP TX SCH ×2 (07:36→19:07)
[2020-08-30] MEDS: ARFORMOTEROL 15 MCG/2 ML NEB RESP TX SCH ×2 (07:36→19:07)
[2020-08-30] MEDS: PARoxetine 20 MG TABLET PO SCH (08:26)
[2020-08-30] MEDS: ASCORBIC ACID 500 MG TABLET PO SCH (08:27)
[2020-08-30] MEDS: PANTOPRAZOLE 40 MG TABLET PO SCH (08:27)
[2020-08-30] MEDS: FERROUS SULFATE 325 MG TABLET PO SCH (08:27)
[2020-08-30] MEDS: Umeclidinium [Incruse Ellipta] 62.5 mcg/actuation INH SCH (10:47)
[2020-08-30] MEDS: SIMVASTATIN 20 MG TABLET PO SCH (20:44)
[2020-08-30] MEDS: PRAMIPEXOLE 0.25 MG TABLET PO SCH (20:44)
[2020-08-31] MEDS: ALBUTEROL/IPRATROPIUM 3 ML NEB RESP TX SCH ×3 (01:57→12:15)
[2020-08-31] MEDS: LEVOFLOXACIN INJ 750 MG in PREMIX 1 EACH IV SCH (03:47)
[2020-08-31] MEDS: methylPREDNISolone SOD SUC 40 MG/1 ML VIAL IV SCH ×2 (03:51→11:44)
[2020-08-31] MEDS: LEVOTHYROXINE 50 MCG TABLET PO SCH (06:01)
[2020-08-31] MEDS: ENOXAPARIN 40 MG/0.4 ML SYRINGE SUBCUT SCH (06:01)
[2020-08-31] MEDS: BUDESONIDE 0.5 MG/2 ML NEB RESP TX SCH (07:00)
[2020-08-31] MEDS: ARFORMOTEROL 15 MCG/2 ML NEB RESP TX SCH (07:00)
[2020-08-31] MEDS: ASCORBIC ACID 500 MG TABLET PO SCH (09:26)
[2020-08-31] MEDS: PANTOPRAZOLE 40 MG TABLET PO SCH (09:26)
[2020-08-31] MEDS: FERROUS SULFATE 325 MG TABLET PO SCH (09:26)
[2020-08-31] MEDS: PARoxetine 20 MG TABLET PO SCH (09:26)
[2020-08-31 11:42] VITALS: BP 143/69
== END 2020-08-31 14:10 | disposition home or self-care (01) | DRG 190 ==
LOC: SUATTDRO 02:18 → N.CC 02:18 → N.3E 08-29 22:39
PROVIDERS: ADMIT Internal Medicine; ATTEND Internal Medicine

== ENCOUNTER 2020-10-27 07:09 | Inpatient (IN) ==
[2020-10-27] MEDS ORDERED: ALBUTEROL 2.5 MG/3 ML NEB RESP TX STA (07:30)
[2020-10-27 08:03] LABS: Basophils % 0.1 % (0.0-0.8); Eosinophils # 0.1 10*3/uL (0.0-0.87); Eosinophils % 0.5 % (0.00-10.9); Hematocrit 38.4 VOL% (35.7-47.0); Immature Granulocytes % 0.5 %; Immature Granulocytes Absolute 0.08 #; Lymphocytes # 0.4 10*3/uL (1.4-4.0); Lymphocytes % 2.4 % (21.3-54.2); Mean Corpuscular HGB Conc 29.7 GM/DL (32-36); Monocytes % 8.9 % (1.7-12.7); Neutrophils % 87.6 % (38.7-73.9); Platelet Count 253 T/CUMM (130-400); Red Blood Count 3.96 MC/CUMM (3.8-5.5); Red Cell Distribution Width 14.8 % (9.3-17.3); White Blood Count 14.7 T/CUMM (4-12)
[2020-10-27 08:27] LABS: Alanine Aminotransferase 21 U/L (13-56); Alkaline Phosphatase 84 U/L (45-117); Aspartate Amino Transferase 18 U/L (0-37); Bilirubin,Total < 0.39 MG/DL (0.2-1.0); Blood Urea Nitrogen 12 MG/DL (7-18); Calcium 8.4 MG/DL (8.5-10.1); Carbon Dioxide 34 MMOL/L (21-32); Estimated Glom Filtration Rate 85 ML/MIN; Glucose 145 MG/DL (74-106); Sodium 136 MMOL/L (136-145); Total Protein 6.9 G/DL (6.4-8.2)
[2020-10-27 08:28] LABS: Hemoglobin 11.4 GM/DL (12.0-16.0)
[2020-10-27 08:40] LABS: Anisocytosis 1+; Band Neutrophils 22 % (0-10); Basophilic Stippling Slight; Lymphocytes 2 % (20-55); Platelet Estimate Normal; Segmented Neutrophils 69 % (50-85); Total Cells Counted 100
[2020-10-27 08:41] LABS: Macrocytosis Slight
[2020-10-27] MEDS ORDERED: GLUCAGON 1 MG VIAL IM PRN (10:14)
[2020-10-27] MEDS ORDERED: hydrALAZINE 20 MG/1 ML VIAL IV PRN (10:14)
[2020-10-27] MEDS ORDERED: DEXTROSE 50% 25 GM/50 ML VIAL IV PRN (10:14)
[2020-10-27] MEDS ORDERED: ACETAMINOPHEN 325 MG TABLET PO PRN (10:14)
[2020-10-27] MEDS ORDERED: FUROSEMIDE 40 MG/4 ML VIAL IV ONE (10:23)
[2020-10-27] MEDS ORDERED: AZITHROMYCIN INJ 500 MG in SODIUM CHLORIDE 0.9% 250 ML IV SCH (10:30)
[2020-10-27] MEDS: methylPREDNISolone SOD SUC 40 MG/1 ML VIAL IV SCH ×2 (11:28→22:47)
[2020-10-27] MEDS: LEVOFLOXACIN INJ 750 MG/150 ML PREMIX IV SCH (11:31)
[2020-10-27] MEDS: ENOXAPARIN 40 MG/0.4 ML SYRINGE SUBCUT SCH (11:32)
[2020-10-27 12:30] LABS: Bacteria,Urine Occasional /HPF (Few); Blood, Urine Negative (Negative); Glucose,Urine (UA) Negative (Negative); Hyaline Casts,Urine 44 /LPF (0-3); Ketones,Urine Negative (Negative); Mucus,Urine Moderate /LPF (Occasional); Nitrite,Urine Negative (Negative); Protein,Urine 100 MG/DL; RBC,Urine 3 /HPF (0-4); Squamous Epithelial Cell,Urine Occasional /HPF (0-10); Urine Appearance CLOUDY (Clear); Urine Color Amber (Yellow); Urine Specific Gravity 1.026 (1.001-1.035)
[2020-10-27 12:31] LABS: Bilirubin,Urine Small mg/dL (Negative)
[2020-10-27] MEDS ORDERED: CYANOCOBALAMIN 1000 MCG/1 ML VIAL IM SCH (13:30)
[2020-10-27] MEDS: ALBUTEROL 2.5 MG/3 ML NEB RESP TX PRN (15:09)
[2020-10-27] MEDS ORDERED: ARFORMOTEROL 15 MCG/2 ML NEB RESP TX SCH (19:00)
[2020-10-27] MEDS: ALBUTEROL/IPRATROPIUM 3 ML NEB RESP TX PRN (20:10)
[2020-10-27] MEDS: PRAMIPEXOLE 0.25 MG TABLET PO SCH (21:16)
[2020-10-27] MEDS: guaiFENesin/DM ER 600-30 MG TABLET PO SCH (21:17)
[2020-10-27] MEDS: SIMVASTATIN 20 MG TABLET PO SCH (21:17)
[2020-10-28] MEDS: ALBUTEROL/IPRATROPIUM 3 ML NEB RESP TX PRN (05:00)
[2020-10-28 05:16] LABS: Basophils % 0.2 % (0.0-0.8); Hematocrit 35.2 VOL% (35.7-47.0); Hemoglobin 10.7 GM/DL (12.0-16.0); Immature Granulocytes % 1.4 %; Immature Granulocytes Absolute 0.15 #; Lymphocytes # 0.3 10*3/uL (1.4-4.0); Lymphocytes % 2.6 % (21.3-54.2); Mean Corpuscular HGB Conc 30.4 GM/DL (32-36); Mean Corpuscular Volume 94.1 FL (87-102); Mean Platelet Volume 9.9 FL (9.6-12.0); Monocytes % 2.5 % (1.7-12.7); Neutrophils % 93.3 % (38.7-73.9); Platelet Count 263 T/CUMM (130-400); Red Blood Count 3.74 MC/CUMM (3.8-5.5); Red Cell Distribution Width 14.6 % (9.3-17.3); White Blood Count 10.6 T/CUMM (4-12)
[2020-10-28 05:38] LABS: Lymphocytes 3 % (20-55); Segmented Neutrophils 95 % (50-85); Total Cells Counted 100
[2020-10-28 05:39] LABS: Hypochromasia 1+; Microcytosis 1+; Platelet Estimate Adequate
[2020-10-28 05:45] LABS: Calcium 8.8 MG/DL (8.5-10.1); Potassium 3.9 MMOL/L (3.5-5.1); Risk Ratio 1.87; Thyroid Stimulating Hormone 0.387 uIU/ml (0.358-3.74); VLDL CHOLESTEROL 16.2 MG/DL
[2020-10-28] MEDS: LEVOTHYROXINE 50 MCG TABLET PO SCH (06:36)
[2020-10-28] MEDS: ALBUTEROL 2.5 MG/3 ML NEB RESP TX PRN (07:26)
[2020-10-28 07:28] LABS: Osmolality,Calculated 266.5 MOS/KG (273-304)
[2020-10-28] MEDS: LOSARTAN 50 MG TABLET PO SCH (08:44)
[2020-10-28] MEDS: FERROUS SULFATE 325 MG TABLET PO SCH (08:45)
[2020-10-28] MEDS: guaiFENesin/DM ER 600-30 MG TABLET PO SCH ×2 (08:45→22:09)
[2020-10-28] MEDS: PANTOPRAZOLE 40 MG TABLET PO SCH (08:45)
[2020-10-28] MEDS: hydroCHLOROthiazide 25 MG TABLET PO SCH (08:45)
[2020-10-28] MEDS: ASCORBIC ACID 500 MG TABLET PO SCH (08:45)
[2020-10-28] MEDS: PARoxetine 20 MG TABLET PO SCH (08:47)
[2020-10-28] MEDS: LEVOFLOXACIN INJ 750 MG/150 ML PREMIX IV SCH (10:00)
[2020-10-28] MEDS: ENOXAPARIN 40 MG/0.4 ML SYRINGE SUBCUT SCH (10:00)
[2020-10-28] MEDS: methylPREDNISolone SOD SUC 40 MG/1 ML VIAL IV SCH ×2 (10:00→22:09)
[2020-10-28] MEDS: ALBUTEROL/IPRATROPIUM 3 ML NEB RESP TX SCH ×2 (14:27→20:46)
[2020-10-28] MEDS: METHOCARBAMOL 500 MG TABLET PO PRN (16:12)
[2020-10-28] MEDS: SIMVASTATIN 20 MG TABLET PO SCH (22:09)
[2020-10-28] MEDS: PRAMIPEXOLE 0.25 MG TABLET PO SCH (22:09)
[2020-10-29] MEDS: ALBUTEROL/IPRATROPIUM 3 ML NEB RESP TX SCH ×4 (00:34→20:34)
[2020-10-29 05:27] LABS: Calcium 8.9 MG/DL (8.5-10.1); Osmolality,Calculated 260.1 MOS/KG (273-304); Potassium 3.9 MMOL/L (3.5-5.1)
[2020-10-29 06:05] LABS: Basophils % 0.2 % (0.0-0.8); Hematocrit 36.6 VOL% (35.7-47.0); Hemoglobin 11.3 GM/DL (12.0-16.0); Immature Granulocytes % 1.6 %; Immature Granulocytes Absolute 0.17 #; Lymphocytes # 0.3 10*3/uL (1.4-4.0); Lymphocytes % 3.2 % (21.3-54.2); Mean Corpuscular HGB Conc 30.9 GM/DL (32-36); Mean Corpuscular Volume 92.9 FL (87-102); Mean Platelet Volume 10.3 FL (9.6-12.0); Monocytes % 3.7 % (1.7-12.7); Neutrophils % 91.3 % (38.7-73.9); Platelet Count 308 T/CUMM (130-400); Red Blood Count 3.94 MC/CUMM (3.8-5.5); Red Cell Distribution Width 14.6 % (9.3-17.3); White Blood Count 10.4 T/CUMM (4-12)
[2020-10-29] MEDS: LEVOTHYROXINE 50 MCG TABLET PO SCH (06:17)
[2020-10-29 07:30] LABS: Band Neutrophils 1 % (0-10); Hypochromasia 1+; Lymphocytes 4 % (20-55); Microcytosis 1+; Nucleated Red Blood Cells 1 (0-5); Platelet Estimate Adequate; Segmented Neutrophils 90 % (50-85); Total Cells Counted 100
[2020-10-29] MEDS: PARoxetine 20 MG TABLET PO SCH (08:49)
[2020-10-29] MEDS: LOSARTAN 50 MG TABLET PO SCH (08:49)
[2020-10-29] MEDS: PANTOPRAZOLE 40 MG TABLET PO SCH (08:49)
[2020-10-29] MEDS: guaiFENesin/DM ER 600-30 MG TABLET PO SCH ×2 (08:49→21:59)
[2020-10-29] MEDS: FERROUS SULFATE 325 MG TABLET PO SCH (08:49)
[2020-10-29] MEDS: ASCORBIC ACID 500 MG TABLET PO SCH (08:49)
[2020-10-29] MEDS: LEVOFLOXACIN INJ 750 MG/150 ML PREMIX IV SCH (09:36)
[2020-10-29] MEDS: ENOXAPARIN 40 MG/0.4 ML SYRINGE SUBCUT SCH (09:36)
[2020-10-29] MEDS: methylPREDNISolone SOD SUC 40 MG/1 ML VIAL IV SCH ×2 (09:36→21:59)
[2020-10-29] MEDS: METHOCARBAMOL 500 MG TABLET PO PRN (13:17)
[2020-10-29] MEDS: SIMVASTATIN 20 MG TABLET PO SCH (21:59)
[2020-10-29] MEDS: PRAMIPEXOLE 0.25 MG TABLET PO SCH (21:59)
[2020-10-30] MEDS: ALBUTEROL/IPRATROPIUM 3 ML NEB RESP TX SCH ×4 (02:16→20:20)
[2020-10-30 05:28] LABS: Basophils # 0.1 10*3/uL (0.0-0.2); Basophils % 0.7 % (0.0-0.8); Hematocrit 35.7 VOL% (35.7-47.0); Hemoglobin 11.1 GM/DL (12.0-16.0); Immature Granulocytes % 3.2 %; Immature Granulocytes Absolute 0.32 #; Lymphocytes # 0.5 10*3/uL (1.4-4.0); Lymphocytes % 4.6 % (21.3-54.2); Mean Corpuscular HGB Conc 31.1 GM/DL (32-36); Mean Corpuscular Volume 93.2 FL (87-102); Mean Platelet Volume 9.8 FL (9.6-12.0); Monocytes % 5.8 % (1.7-12.7); Neutrophils % 85.7 % (38.7-73.9); Platelet Count 303 T/CUMM (130-400); Red Blood Count 3.83 MC/CUMM (3.8-5.5); Red Cell Distribution Width 14.5 % (9.3-17.3)
[2020-10-30 05:45] LABS: Calcium 8.9 MG/DL (8.5-10.1); Osmolality,Calculated 268.5 MOS/KG (273-304)
[2020-10-30 05:57] LABS: Lymphocytes 5 % (20-55); Platelet Estimate Normal; Segmented Neutrophils 90 % (50-85); Total Cells Counted 100
[2020-10-30] MEDS: LEVOTHYROXINE 50 MCG TABLET PO SCH (06:37)
[2020-10-30 08:21] LABS: ABG Base Excess 15.2 MMOL/L (-2.5-2.5); ABG Oxygen Saturation 93.6 % (95-100); ABG PH 7.295 (7.35-7.45); ABG TCO2 42.2 MMOL/L (23-27)
[2020-10-30 08:23] LABS: ABG PCO2 95.5 MM HG (35-48)
[2020-10-30] MEDS: LEVOFLOXACIN INJ 750 MG/150 ML PREMIX IV SCH (10:29)
[2020-10-30] MEDS: ENOXAPARIN 40 MG/0.4 ML SYRINGE SUBCUT SCH (10:30)
[2020-10-30] MEDS: hydroCHLOROthiazide 25 MG TABLET PO SCH (10:31)
[2020-10-30] MEDS: LOSARTAN 50 MG TABLET PO SCH (10:31)
[2020-10-30] MEDS: FERROUS SULFATE 325 MG TABLET PO SCH (10:31)
[2020-10-30] MEDS: PANTOPRAZOLE 40 MG TABLET PO SCH (10:31)
[2020-10-30] MEDS: guaiFENesin/DM ER 600-30 MG TABLET PO SCH ×2 (10:31→20:53)
[2020-10-30] MEDS: ASCORBIC ACID 500 MG TABLET PO SCH (10:31)
[2020-10-30] MEDS: predniSONE 20 MG TABLET PO SCH ×2 (10:31→20:53)
[2020-10-30] MEDS: PARoxetine 20 MG TABLET PO SCH (10:32)
[2020-10-30] MEDS: SIMVASTATIN 20 MG TABLET PO SCH (20:53)
[2020-10-30] MEDS: PRAMIPEXOLE 0.25 MG TABLET PO SCH (20:53)
[2020-10-31] MEDS: ALBUTEROL/IPRATROPIUM 3 ML NEB RESP TX SCH ×5 (00:20→23:43)
[2020-10-31 04:50] LABS: ABG Base Excess 18.5 MMOL/L (-2.5-2.5); ABG HCO3 48.3 MMOL/L (20-26); ABG Oxygen Saturation 93.1 % (95-100); ABG PH 7.352 (7.35-7.45); ABG PO2 73.3 MM HG (80-95); Allen Test Positive
[2020-10-31 04:51] LABS: ABG PCO2 89.1 MM HG (35-48)
[2020-10-31 05:52] LABS: Basophils % 0.3 % (0.0-0.8); Hematocrit 39.1 VOL% (35.7-47.0); Hemoglobin 11.8 GM/DL (12.0-16.0); Immature Granulocytes % 5.4 %; Immature Granulocytes Absolute 0.57 #; Lymphocytes # 0.6 10*3/uL (1.4-4.0); Lymphocytes % 5.7 % (21.3-54.2); Mean Corpuscular HGB Conc 30.2 GM/DL (32-36); Mean Corpuscular Volume 95.4 FL (87-102); Monocytes % 5.9 % (1.7-12.7); NRBC # 0.02 10*3/uL; Neutrophils % 82.7 % (38.7-73.9); Platelet Count 353 T/CUMM (130-400); Red Cell Distribution Width 14.3 % (9.3-17.3); White Blood Count 10.7 T/CUMM (4-12)
[2020-10-31 06:11] LABS: Calcium 9.5 MG/DL (8.5-10.1); Osmolality,Calculated 267.5 MOS/KG (273-304); Potassium 4.1 MMOL/L (3.5-5.1)
[2020-10-31 06:35] LABS: Band Neutrophils 6 % (0-10); Lymphocytes 7 % (20-55); Platelet Estimate Normal; Segmented Neutrophils 84 % (50-85); Total Cells Counted 100
[2020-10-31] MEDS: ASCORBIC ACID 500 MG TABLET PO SCH (09:30)
[2020-10-31] MEDS: guaiFENesin/DM ER 600-30 MG TABLET PO SCH ×2 (09:30→21:40)
[2020-10-31] MEDS: LEVOTHYROXINE 50 MCG TABLET PO SCH (09:30)
[2020-10-31] MEDS: PANTOPRAZOLE 40 MG TABLET PO SCH (09:30)
[2020-10-31] MEDS: LOSARTAN 50 MG TABLET PO SCH (09:30)
[2020-10-31] MEDS: predniSONE 20 MG TABLET PO SCH (09:31)
[2020-10-31] MEDS: FERROUS SULFATE 325 MG TABLET PO SCH (09:31)
[2020-10-31] MEDS: PARoxetine 20 MG TABLET PO SCH (09:32)
[2020-10-31] MEDS: ENOXAPARIN 40 MG/0.4 ML SYRINGE SUBCUT SCH (09:33)
[2020-10-31] MEDS: LEVOFLOXACIN INJ 750 MG/150 ML PREMIX IV SCH (09:33)
[2020-10-31] MEDS: THEOPHYLLINE ER 300 MG TABLET PO SCH (17:28)
[2020-10-31] MEDS: methylPREDNISolone SOD SUC 40 MG/1 ML VIAL IV SCH (17:28)
[2020-10-31] MEDS ORDERED: LORazepam 0.5 MG TABLET PO ONE (17:58)
[2020-10-31] MEDS: PRAMIPEXOLE 0.25 MG TABLET PO SCH (21:40)
[2020-10-31] MEDS: SIMVASTATIN 20 MG TABLET PO SCH (21:40)
[2020-11-01] MEDS: methylPREDNISolone SOD SUC 40 MG/1 ML VIAL IV SCH ×3 (02:13→16:21)
[2020-11-01] MEDS: ALBUTEROL/IPRATROPIUM 3 ML NEB RESP TX SCH ×6 (03:40→22:30)
[2020-11-01] MEDS: LEVOTHYROXINE 50 MCG TABLET PO SCH (05:49)
[2020-11-01 07:05] LABS: Basophils # 0.1 10*3/uL (0.0-0.2); Basophils % 0.5 % (0.0-0.8); Hematocrit 39.3 VOL% (35.7-47.0); Hemoglobin 12.5 GM/DL (12.0-16.0); Immature Granulocytes % 5.5 %; Immature Granulocytes Absolute 0.62 #; Lymphocytes # 0.7 10*3/uL (1.4-4.0); Lymphocytes % 5.9 % (21.3-54.2); Mean Corpuscular HGB Conc 31.8 GM/DL (32-36); Mean Corpuscular Volume 91.6 FL (87-102); Mean Platelet Volume 10.1 FL (9.6-12.0); Monocytes % 6.6 % (1.7-12.7); NRBC # 0.03 10*3/uL; Neutrophils % 81.5 % (38.7-73.9); Platelet Count 356 T/CUMM (130-400); Red Blood Count 4.29 MC/CUMM (3.8-5.5); Red Cell Distribution Width 14.6 % (9.3-17.3); White Blood Count 11.2 T/CUMM (4-12)
[2020-11-01 07:17] LABS: Calcium 9.2 MG/DL (8.5-10.1); Osmolality,Calculated 260.1 MOS/KG (273-304)
[2020-11-01 07:47] LABS: Hypochromasia Slight; Lymphocytes 7 % (20-55); Macrocytosis Slight; Platelet Estimate Adequate; Segmented Neutrophils 88 % (50-85); Total Cells Counted 100
[2020-11-01] MEDS: hydroCHLOROthiazide 25 MG TABLET PO SCH (09:43)
[2020-11-01] MEDS: THEOPHYLLINE ER 300 MG TABLET PO SCH ×2 (09:43→16:20)
[2020-11-01] MEDS: FERROUS SULFATE 325 MG TABLET PO SCH (09:43)
[2020-11-01] MEDS: PARoxetine 20 MG TABLET PO SCH (09:43)
[2020-11-01] MEDS: guaiFENesin/DM ER 600-30 MG TABLET PO SCH ×2 (09:43→20:57)
[2020-11-01] MEDS: PANTOPRAZOLE 40 MG TABLET PO SCH (09:44)
[2020-11-01] MEDS: ASCORBIC ACID 500 MG TABLET PO SCH (09:44)
[2020-11-01] MEDS: LOSARTAN 50 MG TABLET PO SCH (09:44)
[2020-11-01] MEDS: LEVOFLOXACIN INJ 750 MG/150 ML PREMIX IV SCH (09:44)
[2020-11-01] MEDS: ENOXAPARIN 40 MG/0.4 ML SYRINGE SUBCUT SCH (09:44)
[2020-11-01] MEDS: SIMVASTATIN 20 MG TABLET PO SCH (20:57)
[2020-11-01] MEDS: PRAMIPEXOLE 0.25 MG TABLET PO SCH (20:57)
[2020-11-02] MEDS: methylPREDNISolone SOD SUC 40 MG/1 ML VIAL IV SCH ×2 (00:29→09:18)
[2020-11-02] MEDS: ALBUTEROL/IPRATROPIUM 3 ML NEB RESP TX SCH ×3 (03:50→11:50)
[2020-11-02 04:18] LABS: ABG Base Excess 16.7 MMOL/L (-2.5-2.5); ABG HCO3 40.7 MMOL/L (20-26); ABG Oxygen Saturation 94.6 % (95-100); ABG PH 7.402 (7.35-7.45); ABG PO2 75.4 MM HG (80-95); ABG TCO2 40.5 MMOL/L (23-27)
[2020-11-02 04:25] LABS: ABG PCO2 73.3 MM HG (35-48)
[2020-11-02 05:24] LABS: Basophils % 0.3 % (0.0-0.8); Hematocrit 38.8 VOL% (35.7-47.0); Hemoglobin 11.8 GM/DL (12.0-16.0); Immature Granulocytes % 5.8 %; Immature Granulocytes Absolute 0.92 #; Lymphocytes # 0.8 10*3/uL (1.4-4.0); Lymphocytes % 5.2 % (21.3-54.2); Mean Corpuscular HGB Conc 30.4 GM/DL (32-36); Mean Corpuscular Volume 92.2 FL (87-102); Mean Platelet Volume 9.6 FL (9.6-12.0); Monocytes % 6.3 % (1.7-12.7); NRBC # 0.04 10*3/uL; Neutrophils % 82.4 % (38.7-73.9); Platelet Count 356 T/CUMM (130-400); Red Blood Count 4.21 MC/CUMM (3.8-5.5); Red Cell Distribution Width 14.7 % (9.3-17.3); White Blood Count 15.9 T/CUMM (4-12)
[2020-11-02] MEDS: LEVOTHYROXINE 50 MCG TABLET PO SCH (05:37)
[2020-11-02 05:38] LABS: Calcium 8.9 MG/DL (8.5-10.1); Osmolality,Calculated 260.2 MOS/KG (273-304); Potassium 3.8 MMOL/L (3.5-5.1)
[2020-11-02 05:48] LABS: Band Neutrophils 2 % (0-10); Lymphocytes 6 % (20-55); Myelocytes 1 %; Nucleated Red Blood Cells 1 (0-5); Segmented Neutrophils 81 % (50-85); Total Cells Counted 100
[2020-11-02 05:49] LABS: Hypochromasia 1+; Microcytosis 1+; Ovalocytes Slight
[2020-11-02] MEDS: ASCORBIC ACID 500 MG TABLET PO SCH (09:17)
[2020-11-02] MEDS: guaiFENesin/DM ER 600-30 MG TABLET PO SCH (09:17)
[2020-11-02] MEDS: PANTOPRAZOLE 40 MG TABLET PO SCH (09:17)
[2020-11-02] MEDS: THEOPHYLLINE ER 300 MG TABLET PO SCH (09:17)
[2020-11-02] MEDS: PARoxetine 20 MG TABLET PO SCH (09:17)
[2020-11-02] MEDS: LOSARTAN 50 MG TABLET PO SCH (09:18)
[2020-11-02] MEDS: FERROUS SULFATE 325 MG TABLET PO SCH (09:18)
[2020-11-02] MEDS: ENOXAPARIN 40 MG/0.4 ML SYRINGE SUBCUT SCH (09:30)
[2020-11-02 11:36] VITALS: BP 126/76
[2020-11-03] MEDS ORDERED: predniSONE 20 MG TABLET PO SCH (09:00)
== END 2020-11-02 15:26 | disposition home health service (06) | DRG 193 ==
LOC: EDBD → EDUNIT# → N.ED 07:09 → N.EDINP 10:14 → SUATTDRO 10:14 → N.5E 13:58
PROVIDERS: ADMIT Internal Medicine Geriatric Medicine; ATTEND Internal Medicine

== ENCOUNTER 2022-04-07 13:53 | Inpatient (IN) ==
[2022-04-07] MEDS ORDERED: ALBUTEROL 2.5 MG/3 ML NEB RESP TX ONE ×4 (14:13→14:27)
[2022-04-07] MEDS ORDERED: methylPREDNISolone SOD SUC 125 MG/2 ML VIAL IV STA (14:13)
[2022-04-07] MEDS ORDERED: FUROSEMIDE 100 MG/10 ML VIAL IV STA (14:13)
[2022-04-07] MEDS ORDERED: ALBUTEROL NEB SOLN 5 MG/ML 20 ML/BOTTLE CONT NEB SCH (14:30)
[2022-04-07 14:57] LABS: Basophils % 0.3 % (0.0-0.8); Eosinophils # 0.1 10*3/uL (0.0-0.87); Eosinophils % 1.5 % (0.00-10.9); Hematocrit 38.4 VOL% (35.7-47.0); Hemoglobin 11.4 GM/DL (12.0-16.0); Immature Granulocytes % 0.6 %; Immature Granulocytes Absolute 0.06 #; Lymphocytes # 0.4 10*3/uL (1.4-4.0); Lymphocytes % 3.8 % (21.3-54.2); Mean Corpuscular HGB Conc 29.7 GM/DL (32-36); Mean Corpuscular Volume 101.6 FL (87-102); Mean Platelet Volume 11.1 FL (9.6-12.0); Monocytes # 0.7 10*3/uL (0.11-0.8); Monocytes % 7.7 % (1.7-12.7); Neutrophils % 86.1 % (38.7-73.9); Platelet Count 202 T/CUMM (130-400); Red Blood Count 3.78 MC/CUMM (3.8-5.5); Red Cell Distribution Width 13.8 % (9.3-17.3); White Blood Count 9.6 T/CUMM (4-12)
[2022-04-07 15:05] LABS: Eosinophils 2 % (0-10); Hypochromia 1+; Lymphocytes 7 % (20-55)
[2022-04-07 15:06] LABS: Platelet Estimate Normal; Stomatocytes Slight
[2022-04-07 15:08] LABS: Total Cells Counted 100
[2022-04-07 15:17] LABS: Arterial Base Excess iSTAT 22 MMOL/L (-2.5-2.5); Arterial Bicarbonate iSTAT 53.9 MMOL/L (20-26); Arterial O2 Saturation iSTAT 89 % (95-100); Arterial PCO2 iSTAT 111 MM HG (35-48); Arterial PO2 iSTAT 70 MM HG (80-95); Arterial Total CO2 iSTAT > 50 MMO/L (23-27); Arterial pH iSTAT 7.297 (7.35-7.45)
[2022-04-07 15:21] LABS: Alanine Aminotransferase 16 U/L (13-56); Albumin 3.5 G/DL (3.4-5.0); Alkaline Phosphatase 76 U/L (45-117); Aspartate Amino Transferase 18 U/L (0-37); Bilirubin,Total < 0.39 MG/DL (0.20-1.00); Blood Urea Nitrogen 12 MG/DL (7-18); Calcium 9.3 MG/DL (8.5-10.1); Chloride 84 MMOL/L (98-107); Glucose 149 MG/DL (74-106); Osmolality,Calculated 268.4 MOS/KG (273-304); Potassium 3.9 MMOL/L (3.5-5.1); Sodium 133 MMOL/L (136-145); Total Protein 6.7 G/DL (6.4-8.2)
[2022-04-07 15:32] LABS: Carbon Dioxide 49 MMOL/L (21-32)
[2022-04-07] MEDS ORDERED: ALBUTEROL 2.5 MG/3 ML NEB RESP TX PRN (15:49)
[2022-04-07] MEDS ORDERED: ONDANSETRON 4 MG/2 ML VIAL IV PRN (15:49)
[2022-04-07] MEDS ORDERED: LACTATED RINGERS 1,000 ML IV SCH (16:00)
[2022-04-07] MEDS ORDERED: DEXTROSE 10% 250 ML BAG IV PRN (16:04)
[2022-04-07] MEDS ORDERED: GLUCAGON 1 MG VIAL IM PRN (16:04)
[2022-04-07 16:26] LABS: Arterial Base Excess iSTAT 25 MMOL/L (-2.5-2.5); Arterial Bicarbonate iSTAT 56.3 MMOL/L (20-26); Arterial O2 Saturation iSTAT 89 % (95-100); Arterial PCO2 iSTAT 100 MM HG (35-48); Arterial PO2 iSTAT 64 MM HG (80-95); Arterial Total CO2 iSTAT > 50 MMO/L (23-27); Arterial pH iSTAT 7.359 (7.35-7.45)
[2022-04-07] MEDS: SODIUM CHLORIDE 0.9% 1,000 ML IV SCH (17:03)
[2022-04-07] MEDS: ENOXAPARIN 40 MG/0.4 ML SYRINGE SUBCUT SCH (17:18)
[2022-04-07] MEDS: PANTOPRAZOLE 40 MG VIAL IV SCH (17:18)
[2022-04-07] MEDS: LEVOFLOXACIN INJ 750 MG/150 ML PREMIX IV SCH (17:18)
[2022-04-07] MEDS: INSULIN LISPRO 100 UNIT/ML SUBCUT SCH ×2 (17:26→23:55)
[2022-04-07] MEDS ORDERED: ZIPRASIDONE 20 MG/1 ML VIAL IM PRN (17:38)
[2022-04-07] MEDS ORDERED: LORazepam 2 MG/1 ML VIAL IV PRN ×2 (18:17→19:10)
[2022-04-07 18:27] LABS: Arterial Base Excess iSTAT 29 MMOL/L (-2.5-2.5); Arterial Bicarbonate iSTAT 59.9 MMOL/L (20-26); Arterial O2 Saturation iSTAT 99 % (95-100); Arterial PCO2 iSTAT 91 MM HG (35-48); Arterial PO2 iSTAT 129 MM HG (80-95); Arterial Total CO2 iSTAT > 50 MMO/L (23-27); Arterial pH iSTAT 7.427 (7.35-7.45)
[2022-04-07] MEDS ORDERED: MORPHINE 2 MG/1 ML SYRINGE IV PRN ×2 (18:54→19:07)
[2022-04-07] MEDS ORDERED: MORPHINE 2 MG/1 ML SYRINGE ONE (18:57)
[2022-04-07] MEDS: BUDESONIDE 0.5 MG/2 ML NEB RESP TX SCH (19:48)
[2022-04-07] MEDS: ALBUTEROL/IPRATROPIUM 3 ML NEB RESP TX SCH (19:48)
[2022-04-07] MEDS: methylPREDNISolone SOD SUC 40 MG/1 ML VIAL IV SCH (20:46)
[2022-04-07] MEDS ORDERED: BUDESONIDE/FORMOTEROL 160-4.5 INHALER 6 GM INH SCH (21:00)
[2022-04-07] MEDS: NYSTATIN CREAM 15 GM TUBE TOP SCH (21:20)
[2022-04-07] MEDS: PRAMIPEXOLE 0.25 MG TABLET PO SCH (21:20)
[2022-04-08] MEDS: ALBUTEROL/IPRATROPIUM 3 ML NEB RESP TX SCH ×4 (01:00→19:52)
[2022-04-08] MEDS: methylPREDNISolone SOD SUC 40 MG/1 ML VIAL IV SCH ×4 (03:12→20:11)
[2022-04-08 03:18] LABS: Arterial Base Excess iSTAT 27 MMOL/L (-2.5-2.5); Arterial Bicarbonate iSTAT 56.6 MMOL/L (20-26); Arterial O2 Saturation iSTAT 91 % (95-100); Arterial PCO2 iSTAT 90 MM HG (35-48); Arterial PO2 iSTAT 68 MM HG (80-95); Arterial Total CO2 iSTAT > 50 MMO/L (23-27); Arterial pH iSTAT 7.407 (7.35-7.45)
[2022-04-08] MEDS: SODIUM CHLORIDE 0.9% 1,000 ML IV SCH ×3 (04:44→18:38)
[2022-04-08] MEDS: LEVOTHYROXINE 50 MCG TABLET PO SCH (05:59)
[2022-04-08] MEDS: INSULIN LISPRO 100 UNIT/ML SUBCUT SCH ×3 (05:59→18:17)
[2022-04-08 06:02] LABS: Hematocrit 34.5 VOL% (35.7-47.0); Hemoglobin 10.3 GM/DL (12.0-16.0); Immature Granulocytes % 0.6 %; Immature Granulocytes Absolute 0.03 #; Lymphocytes # 0.2 10*3/uL (1.4-4.0); Lymphocytes % 3.2 % (21.3-54.2); Mean Corpuscular HGB Conc 29.9 GM/DL (32-36); Mean Corpuscular Volume 99.1 FL (87-102); Mean Platelet Volume 11.1 FL (9.6-12.0); Monocytes # 0.2 10*3/uL (0.11-0.8); Monocytes % 3.6 % (1.7-12.7); Neutrophils % 92.6 % (38.7-73.9); Platelet Count 166 T/CUMM (130-400); Red Blood Count 3.48 MC/CUMM (3.8-5.5); Red Cell Distribution Width 13.7 % (9.3-17.3); White Blood Count 5.3 T/CUMM (4-12)
[2022-04-08 06:27] LABS: Band Neutrophils 1 % (0-10); Hypochromia Slight; Lymphocytes 3 % (20-55); Total Cells Counted 100
[2022-04-08 06:28] LABS: Macrocytosis Slight
[2022-04-08 06:29] LABS: Platelet Estimate Adequate
[2022-04-08] MEDS: BUDESONIDE 0.5 MG/2 ML NEB RESP TX SCH ×2 (07:19→19:54)
[2022-04-08 07:24] LABS: Calcium 9.1 MG/DL (8.5-10.1); Osmolality,Calculated 274.7 MOS/KG (273-304); Potassium 4.2 MMOL/L (3.5-5.1)
[2022-04-08] MEDS ORDERED: MAGNESIUM SULF RIDER 4 GM/100 ML PREMIX IV PRN (09:00)
[2022-04-08] MEDS ORDERED: MAGNESIUM SULF RIDER 2 GM/50 ML PREMIX IV PRN (09:00)
[2022-04-08] MEDS: ASPIRIN CHEW 81 MG TABLET PO SCH (10:36)
[2022-04-08] MEDS: LOSARTAN 25 MG TABLET PO SCH (10:36)
[2022-04-08] MEDS: PARoxetine 20 MG TABLET PO SCH (10:37)
[2022-04-08] MEDS: NYSTATIN CREAM 15 GM TUBE TOP SCH ×3 (10:37→20:44)
[2022-04-08] MEDS: FERROUS SULFATE 325 MG TABLET PO SCH ×2 (10:37→20:17)
[2022-04-08] MEDS: ASCORBIC ACID 500 MG TABLET PO SCH (10:38)
[2022-04-08] MEDS: THEOPHYLLINE ER (24 HR) 400 MG CAPSULE PO SCH (10:38)
[2022-04-08] MEDS: PANTOPRAZOLE 40 MG VIAL IV SCH (17:06)
[2022-04-08] MEDS: LEVOFLOXACIN INJ 750 MG/150 ML PREMIX IV SCH (17:06)
[2022-04-08] MEDS: ENOXAPARIN 40 MG/0.4 ML SYRINGE SUBCUT SCH (17:07)
[2022-04-08] MEDS: SIMVASTATIN 20 MG TABLET PO SCH (20:17)
[2022-04-08] MEDS: PRAMIPEXOLE 0.25 MG TABLET PO SCH (20:17)
[2022-04-09] MEDS: INSULIN LISPRO 100 UNIT/ML SUBCUT SCH ×4 (00:45→18:33)
[2022-04-09] MEDS: ALBUTEROL/IPRATROPIUM 3 ML NEB RESP TX SCH ×4 (00:50→18:59)
[2022-04-09] MEDS: methylPREDNISolone SOD SUC 40 MG/1 ML VIAL IV SCH ×4 (02:22→20:05)
[2022-04-09] MEDS: SODIUM CHLORIDE 0.9% 1,000 ML IV SCH ×2 (04:32→14:39)
[2022-04-09 05:29] LABS: Hematocrit 34.6 VOL% (35.7-47.0); Hemoglobin 10.6 GM/DL (12.0-16.0); Immature Granulocytes % 0.7 %; Immature Granulocytes Absolute 0.04 #; Lymphocytes # 0.2 10*3/uL (1.4-4.0); Lymphocytes % 2.9 % (21.3-54.2); Mean Corpuscular HGB Conc 30.6 GM/DL (32-36); Mean Corpuscular Volume 99.1 FL (87-102); Mean Platelet Volume 11.1 FL (9.6-12.0); Monocytes # 0.3 10*3/uL (0.11-0.8); Neutrophils % 91.4 % (38.7-73.9); Platelet Count 158 T/CUMM (130-400); Red Blood Count 3.49 MC/CUMM (3.8-5.5); Red Cell Distribution Width 13.8 % (9.3-17.3); White Blood Count 5.6 T/CUMM (4-12)
[2022-04-09 05:47] LABS: Calcium 8.5 MG/DL (8.5-10.1); Potassium 3.8 MMOL/L (3.5-5.1)
[2022-04-09 05:49] LABS: Arterial Base Excess iSTAT 21 MMOL/L (-2.5-2.5); Arterial Bicarbonate iSTAT 49.9 MMOL/L (20-26); Arterial O2 Saturation iSTAT 94 % (95-100); Arterial PCO2 iSTAT 81 MM HG (35-48); Arterial PO2 iSTAT 79 MM HG (80-95); Arterial Total CO2 iSTAT > 50 MMO/L (23-27); Arterial pH iSTAT 7.397 (7.35-7.45)
[2022-04-09 05:52] LABS: Hypochromia Slight; Lymphocytes 7 % (20-55); Platelet Estimate Adequate; Total Cells Counted 100
[2022-04-09 05:53] LABS: Macrocytosis Slight
[2022-04-09] MEDS: LEVOTHYROXINE 50 MCG TABLET PO SCH (06:48)
[2022-04-09] MEDS: BUDESONIDE 0.5 MG/2 ML NEB RESP TX SCH ×2 (07:10→18:59)
[2022-04-09] MEDS: ASPIRIN CHEW 81 MG TABLET PO SCH (08:43)
[2022-04-09] MEDS: ASCORBIC ACID 500 MG TABLET PO SCH (08:43)
[2022-04-09] MEDS: PARoxetine 20 MG TABLET PO SCH (08:44)
[2022-04-09] MEDS: FERROUS SULFATE 325 MG TABLET PO SCH ×2 (08:45→20:03)
[2022-04-09] MEDS: THEOPHYLLINE ER (24 HR) 400 MG CAPSULE PO SCH (08:45)
[2022-04-09] MEDS: LOSARTAN 25 MG TABLET PO SCH (08:45)
[2022-04-09] MEDS: NYSTATIN CREAM 15 GM TUBE TOP SCH ×3 (09:03→21:08)
[2022-04-09] MEDS: LEVOFLOXACIN INJ 750 MG/150 ML PREMIX IV SCH (16:53)
[2022-04-09] MEDS: ENOXAPARIN 40 MG/0.4 ML SYRINGE SUBCUT SCH (16:53)
[2022-04-09] MEDS: PANTOPRAZOLE 40 MG VIAL IV SCH (16:54)
[2022-04-09] MEDS: SIMVASTATIN 20 MG TABLET PO SCH (20:03)
[2022-04-09] MEDS: PRAMIPEXOLE 0.25 MG TABLET PO SCH (20:03)
[2022-04-10] MEDS: INSULIN LISPRO 100 UNIT/ML SUBCUT SCH ×5 (00:05→23:45)
[2022-04-10] MEDS: ALBUTEROL/IPRATROPIUM 3 ML NEB RESP TX SCH ×4 (00:38→19:22)
[2022-04-10] MEDS: SODIUM CHLORIDE 0.9% 1,000 ML IV SCH ×2 (01:20→10:56)
[2022-04-10] MEDS: methylPREDNISolone SOD SUC 40 MG/1 ML VIAL IV SCH ×2 (02:23→08:06)
[2022-04-10] MEDS: LEVOTHYROXINE 50 MCG TABLET PO SCH (06:40)
[2022-04-10] MEDS: BUDESONIDE 0.5 MG/2 ML NEB RESP TX SCH ×2 (06:50→19:22)
[2022-04-10] MEDS: ASPIRIN CHEW 81 MG TABLET PO SCH (08:06)
[2022-04-10] MEDS: ASCORBIC ACID 500 MG TABLET PO SCH (08:06)
[2022-04-10] MEDS: PARoxetine 20 MG TABLET PO SCH (08:06)
[2022-04-10] MEDS: LOSARTAN 25 MG TABLET PO SCH (08:06)
[2022-04-10] MEDS: THEOPHYLLINE ER (24 HR) 400 MG CAPSULE PO SCH (08:06)
[2022-04-10] MEDS: FERROUS SULFATE 325 MG TABLET PO SCH ×2 (08:06→20:24)
[2022-04-10] MEDS: NYSTATIN CREAM 15 GM TUBE TOP SCH ×3 (08:34→20:24)
[2022-04-10] MEDS: LEVOFLOXACIN INJ 750 MG/150 ML PREMIX IV SCH (16:27)
[2022-04-10] MEDS: PANTOPRAZOLE 40 MG VIAL IV SCH (16:27)
[2022-04-10] MEDS: ENOXAPARIN 40 MG/0.4 ML SYRINGE SUBCUT SCH (16:27)
[2022-04-10] MEDS ORDERED: methylPREDNISolone SOD SUC 40 MG/1 ML VIAL IV SCH (20:00)
[2022-04-10] MEDS: SIMVASTATIN 20 MG TABLET PO SCH (20:24)
[2022-04-10] MEDS: PRAMIPEXOLE 0.25 MG TABLET PO SCH (20:24)
[2022-04-10] MEDS: ACETAMINOPHEN 325 MG TABLET PO PRN (23:55)
[2022-04-11] MEDS: ALBUTEROL/IPRATROPIUM 3 ML NEB RESP TX SCH ×4 (00:22→19:02)
[2022-04-11 04:11] LABS: Arterial Base Excess iSTAT 13 MMOL/L (-2.5-2.5); Arterial Bicarbonate iSTAT 42.5 MMOL/L (20-26); Arterial O2 Saturation iSTAT 82 % (95-100); Arterial PCO2 iSTAT 88 MM HG (35-48); Arterial PO2 iSTAT 55 MM HG (80-95); Arterial Total CO2 iSTAT 45 MMO/L (23-27); Arterial pH iSTAT 7.291 (7.35-7.45)
[2022-04-11 05:07] LABS: Calcium 8.2 MG/DL (8.5-10.1); Osmolality,Calculated 282.3 MOS/KG (273-304); Potassium 3.6 MMOL/L (3.5-5.1)
[2022-04-11 05:19] LABS: Basophils % 0.2 % (0.0-0.8); Hemoglobin 10.7 GM/DL (12.0-16.0); Immature Granulocytes Absolute 0.11 #; Lymphocytes # 0.2 10*3/uL (1.4-4.0); Mean Corpuscular HGB Conc 29.2 GM/DL (32-36); Mean Corpuscular Volume 102.2 FL (87-102); Mean Platelet Volume 11.1 FL (9.6-12.0); Monocytes # 0.4 10*3/uL (0.11-0.8); Monocytes % 6.8 % (1.7-12.7); NRBC # 0.02 10*3/uL; Platelet Count 151 T/CUMM (130-400); Red Blood Count 3.58 MC/CUMM (3.8-5.5); Red Cell Distribution Width 14.1 % (9.3-17.3); White Blood Count 5.6 T/CUMM (4-12)
[2022-04-11] MEDS: INSULIN LISPRO 100 UNIT/ML SUBCUT SCH ×4 (05:20→20:39)
[2022-04-11 05:23] LABS: Hematocrit 36.6 VOL% (35.7-47.0)
[2022-04-11 05:25] LABS: Eosinophils 1 % (0-10); Lymphocytes 3 % (20-55); Nucleated Red Blood Cells 1 /100 WBC (0-5); Total Cells Counted 100
[2022-04-11 05:26] LABS: Hypochromia Slight; Ovalocytes Slight
[2022-04-11 05:27] LABS: Basophilic Stippling Slight
[2022-04-11 05:28] LABS: Macrocytosis Slight
[2022-04-11] MEDS: LEVOTHYROXINE 50 MCG TABLET PO SCH (06:20)
[2022-04-11] MEDS: BUDESONIDE 0.5 MG/2 ML NEB RESP TX SCH ×2 (07:18→19:02)
[2022-04-11] MEDS: methylPREDNISolone SOD SUC 40 MG/1 ML VIAL IV SCH ×2 (08:43→15:22)
[2022-04-11] MEDS: THEOPHYLLINE ER (24 HR) 400 MG CAPSULE PO SCH (08:45)
[2022-04-11] MEDS: LOSARTAN 25 MG TABLET PO SCH (08:45)
[2022-04-11] MEDS: FERROUS SULFATE 325 MG TABLET PO SCH ×2 (08:45→20:39)
[2022-04-11] MEDS: ASPIRIN CHEW 81 MG TABLET PO SCH (08:46)
[2022-04-11] MEDS: ASCORBIC ACID 500 MG TABLET PO SCH (08:46)
[2022-04-11] MEDS: PARoxetine 20 MG TABLET PO SCH (08:46)
[2022-04-11] MEDS: NYSTATIN CREAM 15 GM TUBE TOP SCH ×3 (08:53→20:39)
[2022-04-11] MEDS: ARFORMOTEROL 15 MCG/2 ML NEB RESP TX SCH ×2 (11:44→19:01)
[2022-04-11] MEDS: ENOXAPARIN 40 MG/0.4 ML SYRINGE SUBCUT SCH (16:42)
[2022-04-11] MEDS: PANTOPRAZOLE 40 MG VIAL IV SCH (16:43)
[2022-04-11] MEDS: LEVOFLOXACIN INJ 750 MG/150 ML PREMIX IV SCH (16:51)
[2022-04-11] MEDS: SIMVASTATIN 20 MG TABLET PO SCH (20:39)
[2022-04-11] MEDS: PRAMIPEXOLE 0.25 MG TABLET PO SCH (20:39)
[2022-04-12] MEDS: ALBUTEROL/IPRATROPIUM 3 ML NEB RESP TX SCH ×4 (00:07→19:15)
[2022-04-12] MEDS: methylPREDNISolone SOD SUC 40 MG/1 ML VIAL IV SCH ×3 (01:17→15:02)
[2022-04-12 04:33] LABS: Arterial Base Excess iSTAT 11 MMOL/L (-2.5-2.5); Arterial Bicarbonate iSTAT 42.9 MMOL/L (20-26); Arterial O2 Saturation iSTAT 93 % (95-100); Arterial PCO2 iSTAT 102 MM HG (35-48); Arterial PO2 iSTAT 85 MM HG (80-95); Arterial Total CO2 iSTAT 46 MMO/L (23-27); Arterial pH iSTAT 7.233 (7.35-7.45)
[2022-04-12 05:22] LABS: Calcium 8.8 MG/DL (8.5-10.1); Osmolality,Calculated 282.4 MOS/KG (273-304); Potassium 3.6 MMOL/L (3.5-5.1)
[2022-04-12 05:29] LABS: Hemoglobin 11.6 GM/DL (12.0-16.0); Immature Granulocytes % 1.7 %; Immature Granulocytes Absolute 0.12 #; Lymphocytes # 0.1 10*3/uL (1.4-4.0); Lymphocytes % 1.7 % (21.3-54.2); Mean Corpuscular HGB Conc 28.5 GM/DL (32-36); Mean Corpuscular Volume 105.2 FL (87-102); Mean Platelet Volume 11.2 FL (9.6-12.0); Monocytes # 0.5 10*3/uL (0.11-0.8); Monocytes % 6.4 % (1.7-12.7); NRBC # 0.02 10*3/uL; Neutrophils % 90.2 % (38.7-73.9); Platelet Count 174 T/CUMM (130-400); Red Blood Count 3.87 MC/CUMM (3.8-5.5); Red Cell Distribution Width 14.3 % (9.3-17.3)
[2022-04-12] MEDS: LEVOTHYROXINE 50 MCG TABLET PO SCH (05:40)
[2022-04-12 05:41] LABS: Hematocrit 40.7 VOL% (35.7-47.0)
[2022-04-12 06:03] LABS: Hypochromia Slight; Lymphocytes 3 % (20-55); Total Cells Counted 100
[2022-04-12 06:04] LABS: Macrocytosis Slight; Platelet Estimate Adequate
[2022-04-12] MEDS: ARFORMOTEROL 15 MCG/2 ML NEB RESP TX SCH ×2 (07:25→19:15)
[2022-04-12] MEDS: BUDESONIDE 0.5 MG/2 ML NEB RESP TX SCH ×2 (07:25→19:15)
[2022-04-12] MEDS: THEOPHYLLINE ER (24 HR) 400 MG CAPSULE PO SCH (10:00)
[2022-04-12] MEDS: FERROUS SULFATE 325 MG TABLET PO SCH ×2 (10:00→21:38)
[2022-04-12] MEDS: ASPIRIN CHEW 81 MG TABLET PO SCH (10:00)
[2022-04-12] MEDS: ASCORBIC ACID 500 MG TABLET PO SCH (10:00)
[2022-04-12] MEDS: LOSARTAN 25 MG TABLET PO SCH (10:00)
[2022-04-12] MEDS: PARoxetine 20 MG TABLET PO SCH (10:02)
[2022-04-12] MEDS: INSULIN LISPRO 100 UNIT/ML SUBCUT SCH ×4 (10:03→21:20)
[2022-04-12] MEDS: NYSTATIN CREAM 15 GM TUBE TOP SCH ×3 (11:32→23:51)
[2022-04-12] MEDS: LEVOFLOXACIN 750 MG TABLET PO SCH (11:37)
[2022-04-12] MEDS: PANTOPRAZOLE 40 MG VIAL IV SCH (16:48)
[2022-04-12] MEDS: ENOXAPARIN 40 MG/0.4 ML SYRINGE SUBCUT SCH (16:48)
[2022-04-12] MEDS: SIMVASTATIN 20 MG TABLET PO SCH (21:39)
[2022-04-12] MEDS: PRAMIPEXOLE 0.25 MG TABLET PO SCH (21:39)
[2022-04-13] MEDS: methylPREDNISolone SOD SUC 40 MG/1 ML VIAL IV SCH ×3 (01:02→15:41)
[2022-04-13] MEDS: ALBUTEROL/IPRATROPIUM 3 ML NEB RESP TX SCH ×4 (02:49→19:20)
[2022-04-13 05:22] LABS: Calcium 8.8 MG/DL (8.5-10.1); Osmolality,Calculated 287.1 MOS/KG (273-304); Potassium 3.9 MMOL/L (3.5-5.1)
[2022-04-13 05:28] LABS: Basophils % 0.1 % (0.0-0.8); Hematocrit 40.4 VOL% (35.7-47.0); Immature Granulocytes % 1.8 %; Immature Granulocytes Absolute 0.14 #; Lymphocytes # 0.2 10*3/uL (1.4-4.0); Lymphocytes % 2.1 % (21.3-54.2); Mean Corpuscular HGB Conc 29.5 GM/DL (32-36); Mean Corpuscular Volume 104.4 FL (87-102); Mean Platelet Volume 11.6 FL (9.6-12.0); Monocytes # 0.5 10*3/uL (0.11-0.8); Monocytes % 6.1 % (1.7-12.7); Neutrophils % 89.9 % (38.7-73.9); Platelet Count 173 T/CUMM (130-400); Red Blood Count 3.87 MC/CUMM (3.8-5.5); Red Cell Distribution Width 14.5 % (9.3-17.3); White Blood Count 7.7 T/CUMM (4-12)
[2022-04-13 05:29] LABS: Hemoglobin 11.9 GM/DL (12.0-16.0)
[2022-04-13 05:31] LABS: Band Neutrophils 1 % (0-10); Lymphocytes 5 % (20-55); Platelet Estimate Normal; Total Cells Counted 100
[2022-04-13] MEDS: LEVOTHYROXINE 50 MCG TABLET PO SCH (05:47)
[2022-04-13] MEDS: ARFORMOTEROL 15 MCG/2 ML NEB RESP TX SCH ×2 (07:45→19:20)
[2022-04-13] MEDS: BUDESONIDE 0.5 MG/2 ML NEB RESP TX SCH ×2 (07:45→19:20)
[2022-04-13] MEDS: INSULIN LISPRO 100 UNIT/ML SUBCUT SCH ×4 (09:35→23:49)
[2022-04-13] MEDS: LEVOFLOXACIN 750 MG TABLET PO SCH (09:36)
[2022-04-13] MEDS: ASPIRIN CHEW 81 MG TABLET PO SCH (09:36)
[2022-04-13] MEDS: ASCORBIC ACID 500 MG TABLET PO SCH (09:36)
[2022-04-13] MEDS: THEOPHYLLINE ER (24 HR) 400 MG CAPSULE PO SCH (09:36)
[2022-04-13] MEDS: FERROUS SULFATE 325 MG TABLET PO SCH ×2 (09:36→22:28)
[2022-04-13] MEDS: LOSARTAN 25 MG TABLET PO SCH (09:36)
[2022-04-13] MEDS: PARoxetine 20 MG TABLET PO SCH (09:36)
[2022-04-13] MEDS: NYSTATIN CREAM 15 GM TUBE TOP SCH ×3 (10:44→22:35)
[2022-04-13 11:49] LABS: Arterial Base Excess iSTAT 16 MMOL/L (-2.5-2.5); Arterial Bicarbonate iSTAT 47.3 MMOL/L (20-26); Arterial O2 Saturation iSTAT 87 % (95-100); Arterial PCO2 iSTAT 99 MM HG (35-48); Arterial PO2 iSTAT 64 MM HG (80-95); Arterial Total CO2 iSTAT > 50 MMO/L (23-27); Arterial pH iSTAT 7.289 (7.35-7.45)
[2022-04-13] MEDS: ENOXAPARIN 40 MG/0.4 ML SYRINGE SUBCUT SCH (16:51)
[2022-04-13] MEDS: PANTOPRAZOLE 40 MG VIAL IV SCH (16:52)
[2022-04-13] MEDS: SIMVASTATIN 20 MG TABLET PO SCH (22:28)
[2022-04-13] MEDS: PRAMIPEXOLE 0.25 MG TABLET PO SCH (22:29)
[2022-04-14] MEDS: ALBUTEROL/IPRATROPIUM 3 ML NEB RESP TX SCH ×4 (00:22→19:42)
[2022-04-14] MEDS: methylPREDNISolone SOD SUC 40 MG/1 ML VIAL IV SCH ×2 (00:56→09:07)
[2022-04-14 04:25] LABS: Arterial Base Excess iSTAT 19 MMOL/L (-2.5-2.5); Arterial Bicarbonate iSTAT 48.6 MMOL/L (20-26); Arterial O2 Saturation iSTAT 79 % (95-100); Arterial PCO2 iSTAT 89 MM HG (35-48); Arterial PO2 iSTAT 49 MM HG (80-95); Arterial Total CO2 iSTAT > 50 MMO/L (23-27); Arterial pH iSTAT 7.344 (7.35-7.45)
[2022-04-14] MEDS: LEVOTHYROXINE 50 MCG TABLET PO SCH (06:35)
[2022-04-14 07:24] LABS: Hematocrit 37.9 VOL% (35.7-47.0); Immature Granulocytes Absolute 0.07 #; Lymphocytes # 0.1 10*3/uL (1.4-4.0); Lymphocytes % 1.8 % (21.3-54.2); Mean Platelet Volume 11.7 FL (9.6-12.0); Monocytes # 0.3 10*3/uL (0.11-0.8); Monocytes % 3.8 % (1.7-12.7); Neutrophils % 93.4 % (38.7-73.9); Platelet Count 150 T/CUMM (130-400); Red Blood Count 3.68 MC/CUMM (3.8-5.5); Red Cell Distribution Width 14.3 % (9.3-17.3); White Blood Count 6.8 T/CUMM (4-12)
[2022-04-14 07:30] LABS: Calcium 8.9 MG/DL (8.5-10.1); Potassium 3.6 MMOL/L (3.5-5.1)
[2022-04-14] MEDS: BUDESONIDE 0.5 MG/2 ML NEB RESP TX SCH ×2 (07:30→19:42)
[2022-04-14] MEDS: ARFORMOTEROL 15 MCG/2 ML NEB RESP TX SCH ×2 (07:30→19:42)
[2022-04-14 07:43] LABS: Hypochromia Slight; Lymphocytes 1 % (20-55); Macrocytosis Slight; Platelet Estimate Adequate; Total Cells Counted 100
[2022-04-14] MEDS: THEOPHYLLINE ER (24 HR) 400 MG CAPSULE PO SCH (09:08)
[2022-04-14] MEDS: INSULIN LISPRO 100 UNIT/ML SUBCUT SCH ×4 (09:08→20:52)
[2022-04-14] MEDS: ASCORBIC ACID 500 MG TABLET PO SCH (09:08)
[2022-04-14] MEDS: LEVOFLOXACIN 750 MG TABLET PO SCH (09:08)
[2022-04-14] MEDS: FERROUS SULFATE 325 MG TABLET PO SCH ×2 (09:08→21:13)
[2022-04-14] MEDS: PARoxetine 20 MG TABLET PO SCH (09:09)
[2022-04-14] MEDS: LOSARTAN 25 MG TABLET PO SCH (09:09)
[2022-04-14] MEDS: NYSTATIN CREAM 15 GM TUBE TOP SCH ×3 (09:09→21:16)
[2022-04-14] MEDS: ASPIRIN CHEW 81 MG TABLET PO SCH (09:09)
[2022-04-14] MEDS: ENOXAPARIN 40 MG/0.4 ML SYRINGE SUBCUT SCH (17:03)
[2022-04-14] MEDS: PANTOPRAZOLE 40 MG VIAL IV SCH (17:04)
[2022-04-14] MEDS: SIMVASTATIN 20 MG TABLET PO SCH (21:13)
[2022-04-14] MEDS: PRAMIPEXOLE 0.25 MG TABLET PO SCH (21:13)
[2022-04-14] MEDS: predniSONE 20 MG TABLET PO SCH (21:13)
[2022-04-14] MEDS: ACETAMINOPHEN 325 MG TABLET PO PRN (23:00)
[2022-04-15] MEDS: ALBUTEROL/IPRATROPIUM 3 ML NEB RESP TX SCH ×3 (01:13→13:59)
[2022-04-15 04:29] LABS: Arterial Base Excess iSTAT 20 MMOL/L (-2.5-2.5); Arterial Bicarbonate iSTAT 50.7 MMOL/L (20-26); Arterial O2 Saturation iSTAT 97 % (95-100); Arterial PCO2 iSTAT 98 MM HG (35-48); Arterial PO2 iSTAT 101 MM HG (80-95); Arterial Total CO2 iSTAT > 50 MMO/L (23-27); Arterial pH iSTAT 7.321 (7.35-7.45)
[2022-04-15] MEDS: LEVOTHYROXINE 50 MCG TABLET PO SCH (06:21)
[2022-04-15] MEDS: ARFORMOTEROL 15 MCG/2 ML NEB RESP TX SCH (07:27)
[2022-04-15] MEDS: BUDESONIDE 0.5 MG/2 ML NEB RESP TX SCH (07:27)
[2022-04-15 08:42] LABS: Basophils % 0.1 % (0.0-0.8); Hematocrit 39.8 VOL% (35.7-47.0); Immature Granulocytes Absolute 0.08 #; Lymphocytes # 0.2 10*3/uL (1.4-4.0); Lymphocytes % 2.2 % (21.3-54.2); Mean Corpuscular HGB Conc 28.9 GM/DL (32-36); Mean Corpuscular Volume 103.1 FL (87-102); Mean Platelet Volume 11.3 FL (9.6-12.0); Monocytes # 0.3 10*3/uL (0.11-0.8); Monocytes % 4.4 % (1.7-12.7); Neutrophils % 92.3 % (38.7-73.9); Platelet Count 176 T/CUMM (130-400); Red Blood Count 3.86 MC/CUMM (3.8-5.5); Red Cell Distribution Width 14.2 % (9.3-17.3); White Blood Count 7.8 T/CUMM (4-12)
[2022-04-15 08:44] LABS: Hemoglobin 11.5 GM/DL (12.0-16.0)
[2022-04-15 08:47] LABS: Lymphocytes 4 % (20-55); Total Cells Counted 100
[2022-04-15 08:48] LABS: Platelet Estimate Adequate
[2022-04-15] MEDS: predniSONE 20 MG TABLET PO SCH (08:48)
[2022-04-15] MEDS: LEVOFLOXACIN 750 MG TABLET PO SCH (08:49)
[2022-04-15] MEDS: THEOPHYLLINE ER (24 HR) 400 MG CAPSULE PO SCH (08:49)
[2022-04-15] MEDS: LOSARTAN 25 MG TABLET PO SCH (08:49)
[2022-04-15] MEDS: ASCORBIC ACID 500 MG TABLET PO SCH (08:50)
[2022-04-15] MEDS: ASPIRIN CHEW 81 MG TABLET PO SCH (08:50)
[2022-04-15] MEDS: PARoxetine 20 MG TABLET PO SCH (08:50)
[2022-04-15] MEDS: FERROUS SULFATE 325 MG TABLET PO SCH (08:50)
[2022-04-15 09:07] LABS: Blood Urea Nitrogen 17 MG/DL (7-18); Calcium 8.6 MG/DL (8.5-10.1); Carbon Dioxide 48 MMOL/L (21-32); Chloride 95 MMOL/L (98-107); Glucose 126 MG/DL (74-106); Osmolality,Calculated 284.3 MOS/KG (273-304); Potassium 3.5 MMOL/L (3.5-5.1); Sodium 141 MMOL/L (136-145)
[2022-04-15] MEDS: INSULIN LISPRO 100 UNIT/ML SUBCUT SCH ×2 (09:48→11:26)
[2022-04-15] MEDS: NYSTATIN CREAM 15 GM TUBE TOP SCH (12:16)
[2022-04-15 15:12] VITALS: BP 139/68
== END 2022-04-15 14:10 | disposition home health service (06) | DRG 189 ==
LOC: N.ED 13:53 → N.EDINP 15:49 → SUATTDRO 15:49 → N.ICU 16:07 → N.5E 04-11 20:34
PROVIDERS: ADMIT Internal Medicine; ATTEND Internal Medicine